=== PATIENT | female | born 1990 | race Caucasian/White ===

== ENCOUNTER 2016-09-29 14:07 | Emergency (ER) | payer MEDICARE, MEDICAID ==
[2016-09-29 17:53] LABS: Hematocrit 45 % (35-47); Hemoglobin 15.2 g/dl (12.0-16.0); Mean Corpuscular HGB Conc 34 g/dl (31-36); Mean Corpuscular Hemoglobin 30 pg (27-31); Mean Corpuscular Volume 87 fL (80-97); Mean Platelet Volume 8 um3 (7.4-10.4); Red Blood Count 5.14 10^6/ul (4.0-5.4); Red Cell Distribution Width 13 % (10.5-15); White Blood Count 10.4 10^3/ul (3.5-10.8)
[2016-09-29 18:10] LABS: ALT 67 U/L (7-52); AST 43 U/L (13-39); Albumin 4.2 g/dL (3.2-5.2); Alkaline Phosphatase 66 U/L (34-104); Anion Gap 10 mmol/L (2-11); Blood Urea Nitrogen 11 mg/dL (6-24); C Reactive Protein 7.95 mg/L (< 5.00); CO2 Carbon Dioxide 26 mmol/L (22-32); Calcium 10.2 mg/dL (8.6-10.3); Chloride 97 mmol/L (101-111); EGFR African American 152.5 (>60); EGFR Non-African American 118.6 (>60); Globulin 3.9 g/dL (2-4); Glucose 279 mg/dL (70-100); Lipase 29 U/L (11.0-82.0); Potassium 3.9 mmol/L (3.5-5.0); Sodium 133 mmol/L (133-145); Total Protein 8.1 g/dL (6.4-8.9)
--- NOTE | 2016-09-29 18:56 | RAD ---
HISTORY: Diffuse abdominal pain COMPARISONS: None TECHNIQUE: Multiple transverse and longitudinal ultrasound images were obtained of the right upper quadrant of the abdomen using grayscale and color Doppler imaging. FINDINGS: LIVER: The liver is diffusely echogenic and coarse in echotexture, with decreased acoustic transmission. The liver is enlarged measuring 24 cm in long axis.. There is normal hepatopedal flow of the portal vein on Doppler imaging. BILIARY TREE: There is no intrahepatic or extrahepatic biliary dilatation. The common duct measures 0.2 cm. GALLBLADDER: The gallbladder is well-visualized. There is no cholelithiasis, gallbladder wall thickening, pericholecystic fluid, or sonographic Shah sign. PANCREAS: The head of the pancreas is unremarkable. The tail of the pancreas is not well visualized secondary to overlying bowel gas. RIGHT KIDNEY: The right kidney is normal in shape, size, contour, and echogenicity. There is no hydronephrosis or nephrolithiasis. The right kidney measures 12.3 x 6.7 x 5.5 cm. AORTA AND IVC: The aorta and IVC are unremarkable. FLUID: There are no pleural effusions. There is no free fluid within the hepatorenal recess. OTHER FINDINGS: There is a hypoechoic focus near the rosemary hepatis suggestive of a rosemary hepatis lymph node measuring 1.7 cm in short axis IMPRESSION: HEPATOMEGALY WITH FATTY INFILTRATION OF LIVER. QUESTIONABLE ENLARGED ROSEMARY HEPATIS LYMPH NODE.
--- NOTE | 2016-09-29 19:05 | RAD ---
HISTORY: Pelvic pain COMPARISONS: October 14, 2014 TECHNIQUE: Multiple transverse and longitudinal ultrasound images were obtained of the pelvis using grayscale, color Doppler, and spectral Doppler imaging using the transabdominal transducer. FINDINGS: UTERUS: The uterus measures 6.3 x 3.2 x 4.2 cm. The uterus is normal in shape, size, contour, and echotexture. ENDOMETRIUM: The endometrial stripe is smooth. The endometrium measures 0.6 cm in thickness. CUL-DE-SAC: There is no free fluid within the cul-de-sac. RIGHT OVARY: The right ovary measures 3.3 x 1.9 x 2.4 cm. Normal arterial and venous waveforms are identifiable within the ovary on spectral Doppler imaging. LEFT OVARY: The left ovary measures 3.9 by 2 x 2.9 cm. Normal arterial and venous waveforms are identifiable within the ovary on spectral Doppler imaging. BLADDER: The visualized bladder is unremarkable. IMPRESSION: NO ACUTE SONOGRAPHIC PATHOLOGY OF THE VISUALIZED PORTION OF THE PELVIS.
[2016-09-29 20:23] VITALS: BP 148/81
--- NOTE | 2016-09-29 21:33 | ED ---
Chaparrita Santana Janilya, scribed for Karl Miles MD on 09/29/16 at 1717 . Abdominal Pain/Female - HPI Summary HPI Summary: A 25 y/o female came in to [facility] presenting w/ a gradual onset of constant abd pain starting 2 days ago. Pain is described as menstrual cramping, however, pt is not bleeding. LNMP Amy, which is normal for pt. In addition, pt reports nausea. Pt denies vomiting, urinary Sx. Pt has normal bowel movements. Pt regularly takes Metformin. - History of Current Complaint Chief Complaint: EDAbdPain Stated Complaint: ABD PAIN Time Seen by Provider: 09/29/16 17:13 Hx Obtained From: Patient Hx Last Menstrual Period: 2013 Onset/Duration: Gradual Onset, Lasting Days, Still Present Timing: Constant Severity Initially: Moderate Severity Currently: Moderate Pain Intensity: 5 Pain Scale Used: 0-10 Numeric Location: Diffuse Radiates: No Character: Dull Aggravating Factor(s): Nothing Alleviating Factor(s): Nothing Allergies/Adverse Reactions: Allergies Allergy/AdvReac Type Severity Reaction Status Date / Time No Known Allergies Allergy Verified 03/14/16 20:28 PMH/Surg Hx/FS Hx/Imm Hx Previously Healthy: Yes Endocrine/Hematology History: Reports: Hx Diabetes, Hx Thyroid Disease - thinks yes Cardiovascular History: Reports: Hx Hypertension Denies: Hx Hypercholesterolemia, Hx Pacemaker/ICD, Hx Peripheral Vascular Disease Respiratory History: Denies: Hx Asthma, Hx Chronic Obstructive Pulmonary Disease (COPD) GI History: Denies: Hx Ulcer Musculoskeletal History: Denies: Hx Arthritis, Hx Rheumatoid Arthritis, Hx Osteoporosis Sensory History: Denies: Hx Cataracts, Hx Contacts or Glasses, Hx Glaucoma, Hx Hearing Aid Opthamlomology History: Denies: Hx Cataracts, Hx Contacts or Glasses, Hx Glaucoma Neurological History: Denies: Hx Headaches, Hx Seizures, Hx Transient Ischemic Attacks (TIA) Psychiatric History: Denies: Hx Anxiety, Hx Depression, Hx Panic Disorder Infectious Disease History: No Infectious Disease History: Reports: History Other Infectious Disease - chicken pox Denies: Hx Clostridium Difficile, Hx Hepatitis, Hx Human Immunodeficiency Virus (HIV), Hx of Known/Suspected MRSA, Hx Shingles, Hx Tuberculosis, Hx Known/ Suspected VRE, Hx Known/Suspected VRSA, Traveled Outside the [place] in Last 30 Days - Family History Known Family History: Positive: Cardiac Disease, Hypertension, Diabetes - Social History Alcohol Use: None Hx Substance Use: No Substance Use Type: Reports: None Hx Tobacco Use: No Smoking Status (MU): Never Smoked Tobacco Review of Systems Positive: Abdominal Pain, Nausea. Negative: Vomiting Genitourinary: Negative Positive: no symptoms reported All Other Systems Reviewed And Are Negative: Yes Physical Exam Triage Information Reviewed: Yes Vital Signs On Initial Exam: Initial Vitals Temp Pulse Resp BP Pulse Ox 97 F 113 18 144/78 99 09/29/16 14:47 09/29/16 14:47 09/29/16 14:47 09/29/16 14:47 09/29/16 14:47 Vital Signs Reviewed: Yes Appearance: Positive: Well-Appearing, No Pain Distress, Obese Skin: Positive: Warm, Skin Color Reflects Adequate Perfusion, Dry Head/Face: Positive: Normal Head/Face Inspection Eyes: Positive: Normal ENT: Positive: Normal ENT inspection Neck: Positive: Supple, Nontender Respiratory/Lung Sounds: Positive: Clear to Auscultation, Breath Sounds Present Cardiovascular: Positive: RRR Abdomen Description: Positive: Nontender, Soft Bowel Sounds: Positive: Present Musculoskeletal: Positive: Normal Neurological: Positive: Normal Psychiatric: Positive: Affect/Mood Appropriate - Carlos Coma Scale Coma Scale Total: 15 Diagnostics - Vital Signs Vital Signs Temp Pulse Resp BP Pulse Ox 09/29/16 16:59 97.1 F 110 16 156/92 96 09/29/16 16:15 97.2 F 101 17 143/75 100 09/29/16 14:47 97 F 113 18 144/78 99 - Laboratory Lab Results: Lab Results 09/29/16 09/29/16 09/29/16 Range/Units 17:45 17:45 17:45 WBC 10.4 (3.5-10.8) 10^3/ul RBC 5.14 (4.0-5.4) 10^6/ul Hgb 15.2 (12.0-16.0) g/dl Hct 45 (35-47) % MCV 87 (80-97) fL MCH 30 (27-31) pg MCHC 34 (31-36) g/dl RDW 13 (10.5-15) % Plt Count 368 (150-450) 10^3/ul MPV 8 (7.4-10.4) um3 Neut % (Auto) 55.5 (38-83) % Lymph % (Auto) 39.2 (25-47) % [place] % (Auto) 3.8 (1-9) % Eos % (Auto) 0.4 (0-6) % Baso % (Auto) 1.1 (0-2) % Absolute Neuts (auto) 5.8 (1.5-7.7) 10^3/ul Absolute Lymphs (auto) 4.1 (1.0-4.8) 10^3/ul Absolute Monos (auto) 0.4 (0-0.8) 10^3/ul Absolute Eos (auto) 0 (0-0.6) 10^3/ul Absolute Basos (auto) 0.1 (0-0.2) 10^3/ul Absolute Nucleated RBC 0.01 10^3/ul Nucleated RBC % 0.1 Sodium 133 (133-145) mmol/L Potassium 3.9 (3.5-5.0) mmol/L Chloride 97 L (101-111) mmol/L Carbon Dioxide 26 (22-32) mmol/L Anion Gap 10 (2-11) mmol/L BUN 11 (6-24) mg/dL Creatinine 0.61 (0.51-0.95) mg/dL Est GFR ( Amer) 152.5 (>60) Est GFR (Non-Af Amer) 118.6 (>60) BUN/Creatinine Ratio 18.0 (8-20) Glucose 279 H (70-100) mg/dL Lactic Acid 2.1 H* (0.5-2.0) mmol/L Calcium 10.2 (8.6-10.3) mg/dL Total Bilirubin 0.30 (0.2-1.0) mg/dL AST 43 H (13-39) U/L ALT 67 H (7-52) U/L Alkaline Phosphatase 66 (34-104) U/L C-Reactive Protein 7.95 H (< 5.00) mg/L Total Protein 8.1 (6.4-8.9) g/dL Albumin 4.2 (3.2-5.2) g/dL Globulin 3.9 (2-4) g/dL Albumin/Globulin Ratio 1.1 (1-3) Lipase 29 (11.0-82.0) U/L Beta HCG, Quant < 0.60 mIU/mL Result Diagrams: 09/29/16 17:45 09/29/16 17:45 Lab Statement: Any lab studies that have been ordered have been reviewed, and results considered in the medical decision making process. - Ultrasound No standard instances Ultrasound Interpretation: Positive (See Comments) - Gallbladder US IMPRESSION: HEPATOMEGALY WITH FATTY INFILTRATION OF LIVER. QUESTIONABLE ENLARGED ROSEMARY HEPATIS LYMPH NODE. Pelvis US IMPRESSION: NO ACUTE SONOGRAPHIC PATHOLOGY OF THE VISUALIZED PORTION OF THE PELVIS. Ultrasound Interpretation Completed By: Radiologist Abdominal Pain Fem Course/Dx - Course Course Of Treatment: Ms. Melendrez C/O abdominal cramping but appeared to be in no distress and was nontender to palpitation. He W/U was unremarkable and she was D/C'd to F/U with her PMD. She inadvertently urinated here without giving a sample. She has no UTI type symptoms. - Diagnoses Provider Diagnoses: Abdominal pain Discharge - Discharge Plan Condition: Stable Disposition: HOME Patient Education Materials: Abdominal Pain (ED) Referrals: Alex Miller NP [Primary Care Provider] - 2 Days The documentation as recorded by the Chaparrita marrero Janilya accurately reflects the service I personally performed and the decisions made by me, Karl Miles MD.
== END 2016-09-29 20:43 | disposition home or self-care (01) ==
LOC: ED 14:07
DX: R10.9 Unspecified abdominal pain (principal); R11.0 Nausea; K76.0 Fatty (change of) liver, not elsewhere classified
CPT/HCPCS: 36415; 76705; 76856; 80053; 83605; 83690; 84702; 85025; 86140; 99282

== ENCOUNTER 2017-02-21 11:28 | Emergency (ER) | payer MEDICARE, MEDICAID ==
[2017-02-21 11:38] VITALS: BP 152/87
--- NOTE | 2017-02-21 11:53 | UC ---
Hand/Wrist HPI - HPI Summary HPI Summary: ONSET OF RIGHT WRIST PAIN 5 DAYS AGO. 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 NO SWELLING. HAS BEEN WEARING A SPLINT WITH NO SIGNIFICANT IMPROVEMENT. - History Of Current Complaint Chief Complaint: UCUpperExtremity Stated Complaint: WRIST PAIN Time Seen by Provider: 02/21/17 11:47 Hx Obtained From: Patient Hx Last Menstrual Period: 01/28/17 Onset/Duration: Gradual Onset, Lasting Days, Still Present Severity Initially: Moderate Severity Currently: Moderate Pain Intensity: 5 Pain Scale Used: 0-10 Numeric Character Of Pain: Dull, Aching Aggravating Factor(s): Movement, Extension Alleviating: Rest Associated Signs And Symptoms: Negative: Swelling, Redness, Bruising, Numbness/ Tingling Related History: Dominant Hand Right - Allergies/Home Medications Allergies/Adverse Reactions: Allergies Allergy/AdvReac Type Severity Reaction Status Date / Time No Known Allergies Allergy Verified 03/14/16 20:28 Home Medications: Home Medications Dulaglutide (NF) [Trulicity (NF)] 1.5 mg SC 02/21/17 [History] Omeprazole CAP* [Prilosec CAP* 20 MG] 20 mg PO DAILY 02/21/17 [History Confirmed 02/21/17] PMH/Surg Hx/FS Hx/Imm Hx Endocrine History: Diabetes Cardiovascular History: Hypertension - Surgical History Surgical History: None - Family History Known Family History: Positive: Cardiac Disease, Hypertension, Diabetes - Social History Alcohol Use: None Substance Use Type: None Smoking Status (MU): Never Smoked Tobacco - Immunization History Most Recent Influenza Vaccination: 02/26/16 Review of Systems Constitutional: Negative Skin: Negative Respiratory: Negative Cardiovascular: Negative Gastrointestinal: Negative Musculoskeletal: Arthralgia, Decreased ROM All Other Systems Reviewed And Are Negative: Yes Physical Exam Triage Information Reviewed: Yes Appearance: Well-Appearing, No Pain Distress, Well-Nourished Vital Signs: Initial Vital Signs Pulse 100 02/21/17 11:34 Resp 20 02/21/17 11:34 BP 152/87 02/21/17 11:34 Pulse Ox 99 02/21/17 11:34 Vital Signs Reviewed: Yes Eyes: Positive: Conjunctiva Clear ENT: Positive: Hearing grossly normal Neck: Positive: Supple Respiratory: Positive: No respiratory distress, No accessory muscle use Cardiovascular: Positive: Pulses Normal Abdomen Description: Positive: Soft Musculoskeletal: Positive: No Edema, ROM Limited @ - RIGHT WRIST EXTENSION, Other: - NOT TENDER OVER SNUFFBOX OR BONY PROMINENCES Neurological: Positive: Alert Psychological: Positive: Age Appropriate Behavior Skin: Negative: rashes Diagnostics - Radiology RIGHT WRIST XRAY Xray Interpretation: No Acute Changes Radiology Interpretation Completed By: Radiologist Hand/Wrist Course/Dx - Differential Dx/Diagnosis Provider Diagnoses: RIGHT WRIST SPRAIN Discharge - Discharge Plan Condition: Stable Disposition: HOME Patient Education Materials: Wrist Sprain (ED) Referrals: Dom Lew MD [Primary Care Provider] - If Needed Additional Instructions: XRAY TODAY UNREMARKABLE. WEAR THE SPLINT WHILE SLEEPING AND DURING THE DAY ABLE. IF YOU ARE NOT IMPROVING OVER THE NEXT 1-2 WEEKS FOLLOW-UP WITH YOUR PCP FOR FURTHER EVALUATION.
--- NOTE | 2017-02-21 12:11 | RAD ---
INDICATION: Right wrist injury. TECHNIQUE: 3 views of the right wrist were obtained. FINDINGS: The bones are in normal alignment. No fracture is seen. Joint spaces appear maintained. IMPRESSION: NO EVIDENCE FOR FRACTURE, IF THE PATIENT'S SYMPTOMS PERSIST, RECOMMEND FOLLOW-UP IMAGING.
== END 2017-02-21 12:45 | disposition home or self-care (01) ==
LOC: UCEAST 11:28
DX: S63.501A Unspecified sprain of right wrist, initial encounter (principal); X58.XXXA Exposure to other specified factors, initial encounter
CPT/HCPCS: 99212; G0463

== ENCOUNTER 2017-07-29 11:48 | Emergency (ER) | payer MEDICARE, MEDICAID ==
--- OUTSIDE RECORDS SUMMARY | 2017-07-29 12:15 | XMS REPORT ---
:1990 External Reference #:[id number] Demographics Address [address] [place] [address] Mobile Phone [phone] Email Address Preferred Language Pashto Marital Status Not Or Baptist Affiliation Unknown Race White Ethnic Group Not Or Author Organization [employer] Address [address] [address] Phone [phone] Care Team Providers Name Role Phone Dimitry Domínguez MD Care Team Information Tire Repair Mechanic Unavailable Dom Lew MD Primary Care Physician Unavailable Payers Type Date Identification Numbers Payment Provider Subscriber Medicare Primary Policy Number: [id number] Medicare Sabas Brooks PayID: [id number] [address] [place] [address] [facility] Policy Number: [id number] Medicaid Sabas Brooks Group Name: [id number] [address] PayID: [id number] [place] [address] Problems Date Description Provider Status Onset: 10/30/2015 Type 2 diabetes mellitus Alex Miller NP Active Onset: 10/30/2015 Essential hypertension Alex Miller NP Active Onset: 10/30/2015 Mixed hyperlipidemia Alex Miller NP Active Onset: 10/30/2015 Gastroesophageal reflux disease Alex Miller NP Active Onset: 10/30/2015 Seasonal allergic rhinitis Alex Miller NP Active Onset: 07/15/2016 Disturbance in sleep behavior Lindy Pedersen MD Active Onset: 07/15/2016 Morbid obesity Lindy Pedersen MD Active Onset: 08/15/2016 Obstructive sleep apnea syndrome Lindy Pedersen MD Active Note: SEVERE Onset: 10/02/2016 Non-alcoholic fatty liver Alex Miller NP Active Note: 09/29/16 u/s ? enlarged sahara hepatis Onset: 03/11/2017 Wrist joint pain Nikko Thrasher M.D. Inactive Inactive: 05/02/2017 Onset: 01/30/2016 Callus of heel Alex Miller NP Resolved Resolved: 05/31/2016 Family History Date Family Member(s) Problem(s) Comments General Hypertension General Diabetes General MGM Alzheimer's Father Hypertension Father Hypercholesterolemia Mother No Current Problems Siblings 3 Healthy Social History Type Date Description Comments Marital Status Single Lives With Alone Occupation Currently Working [employer] Cigarette Use Never Smoked Cigarettes ETOH Use Denies alcohol use Smoking Patient has never smoked Recreational Drug Use Denies Drug Use Daily Caffeine Hot and iced tea daily Normally caffiene freeDocument: 03/17/17 - Sleep Follow Up Daily Caffeine Soda OccasionalDocument: 03/17/17 - Sleep Follow Up Daily Caffeine Regular coffee OccasionalDocument: 03/17/17 - Sleep Follow Up Exercise Type/Frequency Exercises regularly Exercise Type/Frequency Walks daily Exercise Type/Frequency Work [employer] room 3x per week Currently Active Patient is currently not sexually active General Hx Text Allergies, Adverse Reactions, Alerts Date Description Reaction Status Severity Comments 03/16/2014 NKDA active Medications Medication Date Status Form Strength Qnty SIG Indications Ordering Provider Synjardy XR 05/02/ Active Tablets ER 12.5-1000 60tab Take 1 Tablet Dom 2016 24HR mg s By Mouth Twice Nadir Lew, Daily M.D.,FACP Onetouch 03/12/ Active Misc 30G 200un test blood six E11. Nikko Valentin its times daily Anna Marie Mendoza M.D. 30G Vascepa 01/27/ Active Capsules 1gm 60cap 1 by mouth Dom Valentin s twice a day Nadir Lew M.D.,FACP Lantus 01/27/ Active Solution 100Unit/M 15uni Inject 60 Units Dom Santos 2016 Pen-Inject L ts Under The Skin Nadir Lew, Once In Evening M.D.,FACP Trulicity 12/16/ Active Solution 1.5mg/0.5 6ml inject E11. Dom Valentin Pen-Inject ML subcutaneously Nadir Lew, weekly on M.D.,FACP Onetouch 10/07/ Active Strips 100un test six times E11. Nikko Gray Blue 2016 its daily Kyara Thrasher Pen [place] 10/29/ Active Misc 31G X 6 100un humalog subq E11.65 Alex 2015 mm its three times a Mongolian, day W[employer] Enalapril 10/29/ Active Tablets 5mg 180ta take 1 tablet I10 Dom Maleate 2015 bs by mouth twice Nadir Lew, a day M.D.,FACP E11.65 Loratadine Active Tablets 10mg 30tabs take one J30.2 Ion- Dorian tablet by Nadir Lew, mouth one M.D.,FACP time daily Ibuprofen Active Tablets 200mg as needed Unknown Omeprazole Active Capsules DR 20mg 30caps Take One K21.9 Nikko Capsule By Anna Marie, Mouth M.D. Every Day Lovastatin Active Tablets 20mg 30tabs Take 1 E78.2 Dom Tablet By Nadir Lew, Mouth M.D.,FACP Nightly At Bedtime Fenofibrate Active Tablets 54mg 30tabs Take One Dom Tablet By Nadir Lew, Mouth One M.D.,FACP Time Daily Lzu-Wi-Lraabn Active Tablets 0.18/0 Take 1 Unknown .215/0 Tablet By .25 Mouth mg-25 Daily mcg Augmentin 05/02/2017 - Hx Tablets 875-12 20tabs by mouth Dom 05/12/2017 5mg twice a Nadir Lew, conor M.D.,FACP Naproxen DR 03/11/2017 - Hx Tablets DR 375mg 60tabs 1 by mouth M25.53 Nikko 03/17/2017 twice a 1 Pachikara, day M.D. Amoxicillin/Cl 03/11/2017 - Hx Tablets 875-12 20tabs 1 by mouth J06.9 Nikko avulanate 05/02/2017 5mg twice a Pachikara, Potassium day M.D. Fish Oil 01/01/2017 - Hx Capsules 1000mg 60caps 1 by mouth E78.2 Ion- Dorian 01/12/2017 twice a Nadir Lew, conor M.D.,FACP Fish Oil 12/24/2016 - Hx Capsules 1000mg 60caps 1 by mouth E78.2 IonAris Alarcon 12/24/2016 twice a Nadir Lew, day M.DAlea,FACP Vascepa 12/24/2016 - Hx Capsules 1gm 60caps 1 by mouth E78.2 Dom 01/01/2017 twice a Nadir Lew, day M.DAlea,FACP Lovaza 12/16/2016 - Hx Capsules 1gm 60caps take one E78.2 Dom 12/24/2016 capsule by Nadir Lew, mouth M.D.,FACP twice a day Metformin HCL 12/16/2016 - Hx Tablets ER 500mg 360tabs 1 tab by E11.65 Dom ER 05/02/2017 24HR mouth bid Nadir Lew M.D.,FACP Lantus 08/13/2016 - Hx Solution 100Uni 10ml inject 60 E11.65 Dom 01/27/2017 t/ML units Nadir Lew, under the NehemiasDAlea,ERINN skin daily at at bedtime Onetouch 07/16/2016 - Hx Misc 100units test blood [place] Ultrasoft 03/12/2017 3 times a Anna Marie Lancets day and as M.D. needed up to 6 times a day, dx e11.9 Neomycin-Polym 07/12/2016 - Hx Suspension 3.5-10 10ml 4 drops [place] yxin-HC 08/13/2016 000-1 both ear Pachikara, bid M.D. Levofloxacin 07/11/2016 - Hx Tablets 500mg 10tabs once daily H66.92 Nikko 08/13/2016 Kyara Thrasher Ciprodex 07/11/2016 - Hx Suspension 0.3-0. 7.500ml 4 drops H66.92 [place] 08/13/2016 1% twice a Pachikara, day 7 days M.D. stop for inreased iritation Cipro HC 07/11/2016 - Hx Suspension 0.2-1% 10ml 4 drops [place] 08/13/2016 twic daily Pachikara, x 7 says M.D. Amoxicillin 07/08/2016 - Hx Tablets 875mg 20tabs take one H66.92 Alex 07/11/2016 tablet by KOKO Miller mouth twice a day x's 10 days Zofran 05/31/2016 - Hx Tablets 4mg 14tabs take 1 E11. Alex 06/06/2016 tablet by KOKO Miller mouth every 8 hours three times daily as needed for nausea Trulicity 05/23/2016 - Hx Solution 0.75mg 2ml 1 E11. Alex 12/16/2016 Pen-Inject /0.5ML injection KOKO Miller weekly Metformin HCL 05/13/2016 - Hx Tablets ER 500mg 180tabs take 2 E11. Dom THOMAS 12/16/2016 24HR tablets by los Jenkins M.DAlea,FACP daily Metformin HCL 02/05/2016 - Hx Tablets 1000mg 60tabs 1 by mouth E11. Alex 05/13/2016 twice a KOKO Miller day Humalog Mix 10/30/2015 - Hx Supn (75-25 15ml 10 units E11 Alex 75/25 Kwikpen 05/23/2016 )100Un subq twice KOKO Miller it/ML a day at breakfast and dinner; give 15 minutes prior to your meal Lantus 10/30/2015 - Hx Solution 100Uni 15ml inject 20 E11 Alex Solostar 08/13/2016 Pen-Inject t/ML units KOKO Miller under the skin daily at the same time at bedtime Metformin HCL 03/16/2014 - Hx Tablets ER 500mg 90tabs 1 by mouth E11. Alex ER 02/05/2016 24HR twice a KOKO Miller day Enalapril - Hx Tablets 5mg 90tabs 1 by mouth I10 Unknown Maleate 10/30/2015 every day E11. Atorvastatin - Hx Tablets 20mg 90tabs take 1 Unknown Calcium 10/30/2015 tablet at bedtime Fenofibrate - Hx Tablets 54mg 30tabs take one E78.2 Veronica Schmitz 12/16/2016 tablet by los Lew one MTrisha,FACP time daily Medications Administered in Office Medication Date Status Form Strength Qnty SIG Indications Ordering Provider HPV,Unspecifie Administered Injection Unknown d 007 Polio,Unspecif Administered Injection Unknown ied 995 Immunizations CPT Code Status Date Vaccine Lot # [id number] Given 12/16/2016 Pneumonia Vaccine [id number] 84501 Given 04/13/2007 Tdap - Tetanus/Diptheria/Acellular Pertussis 31568 Given 04/13/2007 Hepatitis A Vaccine Adult Dosage 15558 Given 06/20/2002 Hepatitis A Vaccine Pediatric/Adolescent Dosage 3 Dose Schedule 76908 Given 03/25/2002 Hepatitis A Vaccine Pediatric/Adolescent Dosage 2 Dose Schedule 47715 Given 11/19/1994 Hep B Pediatric/Adolescent 62051 Given 11/19/1994 Measles Mumps And Rubella MMR 36499 Given 04/12/1991 Hib PRP-Omp Conjugate 3 Dose Schedule Vital Signs Date Vital Result Comment 07/15/2017 Height 60 inches 5'0" Weight 226.50 lb with shoes Heart Rate 84 /min BP Systolic Sitting 124 mmHg Rue lareg cuff BP Diastolic Sitting 74 mmHg Rue lareg cuff Respiratory Rate 16 /min O2 % BldC Oximetry 99 % On Ra BMI (Body Mass Index) 44.2 kg/m2 05/06/2017 Height 60 inches 5'0" Weight 217.00 lb with shoes Heart Rate 108 /min BP Systolic Sitting 120 mmHg Lue large cuff BP Diastolic Sitting 80 mmHg Lue large cuff Respiratory Rate 24 /min O2 % BldC Oximetry 97 % On Ra BMI (Body Mass Index) 42.4 kg/m2 05/02/2017 Weight 222.00 lb Heart Rate 97 /min BP Systolic Sitting 124 mmHg BP Diastolic Sitting 82 mmHg Body Temperature 98.6 F O2 % BldC Oximetry 95 % 03/17/2017 Height 60 inches 5'0" Weight 226.12 lb With shoes and wrist brace Heart Rate 106 /min BP Systolic Sitting 152 mmHg Lue reg cuff BP Diastolic Sitting 86 mmHg Lue reg cuff Respiratory Rate 24 /min O2 % BldC Oximetry 98 % On Ra BMI (Body Mass Index) 44.2 kg/m2 03/11/2017 Height 60 inches 5'0" Weight 222.12 lb Heart Rate 96 /min BP Systolic 132 mmHg BP Diastolic 74 mmHg Body Temperature 99.6 F O2 % BldC Oximetry 98 % BMI (Body Mass Index) 43.4 kg/m2 01/27/2017 Height 60 inches 5'0" Weight 220.00 lb Heart Rate 102 /min BP Systolic 122 mmHg BP Diastolic 66 mmHg Body Temperature 99.4 F O2 % BldC Oximetry 98 % BMI (Body Mass Index) 43.0 kg/m2 01/13/2017 Height 60 inches 5'0" Weight 226.00 lb Heart Rate 80 /min BP Systolic Sitting 136 mmHg BP Diastolic Sitting 92 mmHg Respiratory Rate 14 /min O2 % BldC Oximetry 98 % BMI (Body Mass Index) 44.1 kg/m2 12/16/2016 Weight 225.38 lb Heart Rate 119 /min BP Systolic 142 mmHg BP Diastolic 78 mmHg BP Systolic Recheck 108 mmHg BP Diastolic Recheck 72 mmHg Body Temperature 97.9 F O2 % BldC Oximetry 96 % 09/26/2016 Height 60 inches 5'0" Heart Rate 111 /min BP Systolic Sitting 120 mmHg BP Diastolic Sitting 70 mmHg Respiratory Rate 22 /min Pain Level 0 O2 % BldC Oximetry 98 % 09/06/2016 Weight 227.38 lb Heart Rate 100 /min BP Systolic Sitting 140 mmHg BP Diastolic Sitting 70 mmHg Body Temperature 98.9 F O2 % BldC Oximetry 96 % 08/15/2016 Height 60 inches 5'0" Weight 227.00 lb Heart Rate 113 /min BP Systolic Sitting 154 mmHg BP Diastolic Sitting 90 mmHg Respiratory Rate 18 /min O2 % BldC Oximetry 97 % BMI (Body Mass Index) 44.3 kg/m2 08/13/2016 Weight 227.38 lb Heart Rate 108 /min BP Systolic Sitting 146 mmHg BP Diastolic Sitting 80 mmHg Body Temperature 99.4 F O2 % BldC Oximetry 98 % 07/15/2016 Height 60 inches 5'0" Weight 227.00 lb Heart Rate 95 /min BP Systolic Sitting 138 mmHg BP Diastolic Sitting 82 mmHg Respiratory Rate 16 /min O2 % BldC Oximetry 97 % BMI (Body Mass Index) 44.3 kg/m2 Neck Circumference in inches 18.25 07/11/2016 Weight 227.38 lb Heart Rate 97 /min BP Systolic Sitting 140 mmHg BP Diastolic Sitting 72 mmHg Body Temperature 99.4 F O2 % BldC Oximetry 97 % 07/08/2016 Height 60 inches 5'0" Weight 229.00 lb Heart Rate 102 /min BP Systolic Sitting 126 mmHg BP Diastolic Sitting 76 mmHg Body Temperature 99.3 F O2 % BldC Oximetry 96 % BMI (Body Mass Index) 44.7 kg/m2 05/31/2016 Height 60 inches 5'0" Weight 226.38 lb Heart Rate 118 /min BP Systolic Sitting 118 mmHg BP Diastolic Sitting 80 mmHg Body Temperature 99.1 F O2 % BldC Oximetry 96 % BMI (Body Mass Index) 44.2 kg/m2 05/13/2016 Weight 230.25 lb Heart Rate 98 /min BP Systolic Sitting 136 mmHg BP Diastolic Sitting 88 mmHg Body Temperature 98.7 F O2 % BldC Oximetry 99 % 04/05/2016 Height 60 inches 5'0" Weight 233.00 lb Heart Rate 110 /min BP Systolic Sitting 134 mmHg BP Diastolic Sitting 70 mmHg Body Temperature 99.4 F O2 % BldC Oximetry 96 % BMI (Body Mass Index) 45.5 kg/m2 03/12/2016 Height 60 inches 5'0" Weight 230.25 lb Heart Rate 108 /min BP Systolic Sitting 126 mmHg BP Diastolic Sitting 76 mmHg Body Temperature 99.4 F O2 % BldC Oximetry 97 % BMI (Body Mass Index) 45.0 kg/m2 02/05/2016 Height 60 inches 5'0" Weight 230.00 lb Heart Rate 96 /min BP Systolic Sitting 136 mmHg BP Diastolic Sitting 76 mmHg Respiratory Rate 16 /min Body Temperature 99.0 F BMI (Body Mass Index) 44.9 kg/m2 12/06/2015 Height 60 inches 5'0" Weight 233.38 lb Heart Rate 114 /min BP Systolic Sitting 118 mmHg BP Diastolic Sitting 70 mmHg O2 % BldC Oximetry 96 % BMI (Body Mass Index) 45.6 kg/m2 11/22/2015 Height 60 inches 5'0" Weight 236.00 lb Heart Rate 94 /min BP Systolic Sitting 112 mmHg BP Diastolic Sitting 76 mmHg Body Temperature 99.3 F O2 % BldC Oximetry 98 % BMI (Body Mass Index) 46.1 kg/m2 10/30/2015 Height 60 inches 5'0" Weight 238.00 lb Heart Rate 102 /min BP Systolic Sitting 148 mmHg BP Diastolic Sitting 92 mmHg Body Temperature 98.7 F O2 % BldC Oximetry 96 % BMI (Body Mass Index) 46.5 kg/m2 03/16/2014 Height 60 inches 5'0" Weight 224.00 lb Heart Rate 78 /min BP Systolic Sitting 124 mmHg BP Diastolic Sitting 80 mmHg Pain Level 2 back BMI (Body Mass Index) 43.7 kg/m2 Results Test Date Test Result H/L Range Note Laboratory test finding 05/02/2017 Hemoglobin A1c 10.2 High 5-7 Lipid Profile (Trig/Chol/HDL) 01/24/2017 Triglycerides 534 mg/dL 1 Cholesterol 223 mg/dL 2 HDL Cholesterol 29.0 mg/dL 3 LDL Cholesterol (SEE NOTE) mg/dL 4 Liver Function Panel 01/24/2017 Total Protein 7.2 g/dL 6.4-8.9 Albumin 3.9 g/dL 3.2-5.2 Globulin 3.3 g/dL 2-4 Albumin/Globulin Ratio 1.2 1-3 Total Bilirubin 0.40 mg/dL 0.2-1.0 Direct Bilirubin 0.10 mg/dL 0.03-0.18 Indirect Bilirubin 0.3 mg/dL 0.3-1.0 Alkaline Phosphatase 61 U/L 34-104 Alt 83 U/L High 7-52 Ast 75 U/L High 13-39 Lipid Profile (Trig/Chol/HDL) 12/12/2016 Triglycerides 487 mg/dL 5 Cholesterol 192 mg/dL 6 HDL Cholesterol 25.8 mg/dL 7 LDL Cholesterol (SEE NOTE) mg/dL 8 Basic Metabolic Panel 12/12/2016 Sodium 135 mmol/L 133-145 Potassium 4.3 mmol/L 3.5-5.0 Chloride 98 mmol/L Low 101-111 Co2 Carbon Dioxide 26 mmol/L 22-32 Anion Gap 11 mmol/L 2-11 Glucose 255 mg/dL High 70-100 Blood Urea Nitrogen 11 mg/dL 6-24 Creatinine 0.50 mg/dL Low 0.51-0.95 BUN/Creatinine Ratio 22.0 High 8-20 Calcium 9.6 mg/dL 8.6-10.3 Egfr Non- 149.1 >60 Egfr 191.8 >60 9 Urine Microalbumin Random 12/12/2016 Urine Creatinine 97.76 mg/dL Ur Microalbumin (mg/L) 142.8 mg/L Urine Microalbumin/Creatinine 146.0 ug/mg High <31 Laboratory test 12/12/2016 Hemoglobin A1c 11.0 % High Less than 6.0 10 finding (Glyco HGB) CBC Auto Diff 09/29/2016 White Blood Count 10.4 10^3/uL 3.5-10.8 Red Blood Count 5.14 10^6/uL 4.0-5.4 Hemoglobin 15.2 g/dL 12.0-16.0 Hematocrit 45 % 35-47 Mean Corpuscular Volume 87 fL 80-97 Mean Corpuscular Hemoglobin 30 pg 27-31 Mean Corpuscular HGB Conc 34 g/dL 31-36 Red Cell Distribution Width 13 % 10.5-15 Platelet Count 368 10^3/uL 150-450 Mean Platelet Volume 8 um3 7.4-10.4 Abs Neutrophils 5.8 10^3/uL 1.5-7.7 Abs Lymphocytes 4.1 10^3/uL 1.0-4.8 Abs Monocytes 0.4 10^3/uL 0-0.8 Abs Eosinophils 0 10^3/uL 0-0.6 Abs Basophils 0.1 10^3/uL 0-0.2 Abs Nucleated RBC 0.01 10^3/uL Granulocyte % 55.5 % 38-83 Lymphocyte % 39.2 % 25-47 Monocyte % 3.8 % 1-9 Eosinophil % 0.4 % 0-6 Basophil % 1.1 % 0-2 Nucleated Red Blood Cells % 0.1 Comp Metabolic Panel 09/29/2016 Sodium 133 mmol/L 133-145 Potassium 3.9 mmol/L 3.5-5.0 Chloride 97 mmol/L Low 101-111 Co2 Carbon Dioxide 26 mmol/L 22-32 Anion Gap 10 mmol/L 2-11 Glucose 279 mg/dL High 70-100 Blood Urea Nitrogen 11 mg/dL 6-24 Creatinine 0.61 mg/dL 0.51-0.95 BUN/Creatinine Ratio 18.0 8-20 Calcium 10.2 mg/dL 8.6-10.3 Total Protein 8.1 g/dL 6.4-8.9 Albumin 4.2 g/dL 3.2-5.2 Globulin 3.9 g/dL 2-4 Albumin/Globulin Ratio 1.1 1-3 Total Bilirubin 0.30 mg/dL 0.2-1.0 Alkaline Phosphatase 66 U/L 34-104 Alt 67 U/L High 7-52 Ast 43 U/L High 13-39 Egfr Non- 118.6 >60 Egfr 152.5 >60 11 Laboratory test finding 09/29/2016 Lipase 29 U/L 11.0-82.0 C Reactive Protein 7.95 mg/L High < 5.00 12 HCG < 0.60 mIU/mL 13 Lactic Acid 2.1 mmol/L High 0.5-2.0 14 Laboratory test finding 08/13/2016 Hemoglobin A1c 10.7 High 5-7 Laboratory test finding 05/13/2016 Hemoglobin A1c 11.5 High 5-7 Laboratory test finding 02/05/2016 Hemoglobin A1c 11.5 High 5-7 Laboratory test finding 11/23/2015 Cortisol 5.23 ?g/dL 15 Basic Metabolic Panel 11/23/2015 Sodium 135 mmol/L 133-145 Potassium 4.2 mmol/L 3.5-5.0 Chloride 99 mmol/L Low 101-111 Co2 Carbon Dioxide 28 mmol/L 22-32 Anion Gap 8 mmol/L 2-11 Glucose 196 mg/dL High 70-100 Blood Urea Nitrogen 11 mg/dL 6-24 Creatinine 0.49 mg/dL Low 0.51-0.95 BUN/Creatinine Ratio 22.4 High 8-20 Calcium 9.3 mg/dL 8.6-10.3 Egfr Non- 153.9 >60 Egfr 197.9 >60 16 Lipid Profile (Trig/Chol/HDL) 11/23/2015 Triglycerides 283 mg/dL 17 Cholesterol 164 mg/dL 18 HDL Cholesterol 26.6 mg/dL 19 LDL Cholesterol 81 mg/dL 20 Laboratory test finding 11/23/2015 TSH (Thyroid Stim 1.75 ?IU/mL 0.34- 5.60 Horm) Laboratory test finding 10/30/2015 Hemoglobin A1c 11.4 High 5-7 Urine Microalbumin 10/30/2015 Ur Microalbumin (mg/L) 131.0 mg/L Random Urine Creatinine 78.48 mg/dL Urine Microalbumin/Creatinine 166.9 ug/mg High <31 1 Desirable <150 Borderline high 150-199 High 200-499 Very High >500 2 Desirable <200 Borderline high 200-239 High >239 3 Low <40 Desirable: 40-60 High: >60 4 Unable to calculate LDL as triglyceride is > 400 5 Desirable <150 Borderline high 150-199 High 200-499 Very High >500 6 Desirable <200 Borderline high 200-239 High >239 7 Low <40 Desirable: 40-60 High: >60 8 Unable to calculate LDL as triglyceride is > 400 9 Because ethnic data is not always readily available, this report includes an eGFR for both -Americans and non- Americans. The National Kidney Disease Education Program (NKDEP) does not endorse the use of the MDRD equation for patients that are not between the ages of 18 and 70, are , have extremes of body size, muscle mass, or nutritional status, or are non- or non-. According to the National Kidney Foundation, irrespective of diagnosis, the stage of the disease is based on the level of kidney function: Stage Description GFR(mL/min/1.73 m(2)) 1 Kidney damage with normal or decreased GFR 90 2 Kidney damage with mild decrease in GFR 60-89 3 Moderate decrease in GFR 30-59 4 Severe decrease in GFR 15-29 5 Kidney failure <15 (or dialysis) 10 Therapeutic target for the treatment of diabetes Mellitus patients is <7% HBA1C, and in selective patients <6.0%.Please refer to [place] [employer] Diabetic care guidelines for further information. 11 Because ethnic data is not always readily available, this report includes an eGFR for both -Americans and non- Americans. The National Kidney Disease Education Program (NKDEP) does not endorse the use of the MDRD equation for patients that are not between the ages of 18 and 70, are , have extremes of body size, muscle mass, or nutritional status, or are non- or non-. According to the National Kidney Foundation, irrespective of diagnosis, the stage of the disease is based on the level of kidney function: Stage Description GFR(mL/min/1.73 m(2)) 1 Kidney damage with normal or decreased GFR 90 2 Kidney damage with mild decrease in GFR 60-89 3 Moderate decrease in GFR 30-59 4 Severe decrease in GFR 15-29 5 Kidney failure <15 (or dialysis) 12 Acute inflammation: >10.00 13 <5.0 Negative 5.0 - 25.0 Indeterminate (Repeat testing recommended after 72 hours) >25.0 Positive Perimenopausal women can display HCG levels of up to 20 mIU/mL 14 Critical Result LACT:2.1 Called to JAIME at: 18:12:11 by:[id number] Read back by:JAIME [facility] Severe Sepsis and Septic Shock Management Bundle Measure requires all lactic acids initially measuring >2.0 mmol/L be repeated. 15 AM 8.7-22.4 PM <10 16 Because ethnic data is not always readily available, this report includes an eGFR for both -Americans and non- Americans. The National Kidney Disease Education Program (NKDEP) does not endorse the use of the MDRD equation for patients that are not between the ages of 18 and 70, are , have extremes of body size, muscle mass, or nutritional status, or are non- or non-. According to the National Kidney Foundation, irrespective of diagnosis, the stage of the disease is based on the level of kidney function: Stage Description GFR(mL/min/1.73 m(2)) 1 Kidney damage with normal or decreased GFR 90 2 Kidney damage with mild decrease in GFR 60-89 3 Moderate decrease in GFR 30-59 4 Severe decrease in GFR 15-29 5 Kidney failure <15 (or dialysis) 17 Desirable <150 Borderline high 150-199 High 200-499 Very High >500 18 Desirable <200 Borderline high 200-239 High >239 19 Low <40 Desirable: 40-60 High: >60 20 Desirable: <100 mg/dL Near Optimal: 100-129 mg/dL Borderline High: 130-159 mg/dL High: 160-189 mg/dL Very High: >189 mg/dL Procedures Date CPT Code Description Status 03/18/2017 62603 Sleep Study Unattended,HRT Rate,Oxygen Sat,Resp Completed Effort/Airflow 09/04/2016 Diabetic Foot Exam Completed 08/08/2016 49149 Polysomnography Sleep Staging 4+ Parameters Completed 06/26/2016 Diabetic Retinal Eye Exam Completed 11/30/2015 Diabetic Foot Exam Completed Encounters Type Date Location Provider CPT E/M Dx Office Visit 05/06/2017 Pulmonology And Sleep Jennifer De Leon, 50751 G47.33 2:30p [facility] KWAN RN, ADJUNCT PROFESSOR OF [employer] E66.01 Z68.41 Office Visit 05/02/2017 11:40a [facility] Internal Dom Lew, [address]07 E11.65 Medicine - [place] Sean Sparrow,FACP M25.531 J01.10 Office Visit 03/17/2017 1:30p [facility] [place] [address] G47.33 [facility] E66.01 Z68.41 Office Visit 03/11/2017 4:00p [facility] Internal Nikko Anna Marie, [address]61 M25.531 Medicine - [address] Kyara J06.9 Office Visit 01/27/2017 2:40p [facility] Internal Dom Lew, [address]71 E11.65 Medicine - [address] Kyara,FACP E78.1 Office Visit 01/13/2017 1:30p [facility] [place] [address] G47.33 [facility] E66.01 Z68.41 Office Visit 12/16/2016 1:40p [facility] Internal Dom eLw, 65465 E11.65 Medicine - [address] Kyara,FACP E66.01 G47.33 E78.1 Z23 Office Visit 09/26/2016 3:15p [facility] [address] G47.33 [facility] E66.01 Office Visit 09/06/2016 10:00a [facility] Internal Medicine Aris Miller, KOKO [address] Z79.4 Office Visit 08/15/2016 3:15p [facility] [address] G47.33 Services Of Guest Services Assistant E66.01 Office Visit 08/13/2016 10:40a [facility] [place] [address] Z79.4 Z79.84 Office Visit 07/15/2016 2:00p Pul[facility] [address] G47.9 Services [facility] E66.01 Office Visit 07/11/2016 10:40a [facility] Internal Nikko Thrasher, 83499 H66.92 Medicine - [address] M.DAlea Office Visit 07/08/2016 12:40p [facility] [place] [address] H66.92 Medicine - [address] Office Visit 05/13/2016 9:40a [facility] [place] [address] E11.65 Medicine - [address] Z79.4 Office Visit 04/05/2016 3:20p [facility] [place] [address] M79.675 Office Visit 03/12/2016 1:40p [facility] Internal Medicine - Alex Mongolian, WIRE SPINNER [address] Office Visit 02/05/2016 10:40a [facility] Internal Medicine - Alex Mongolian, WIRE SPINNER [address] R07.89 Z79.4 Office Visit 12/06/2015 11:00a [facility] [facility] Internal Medicine - Alex Mongolian, [employer] [address] Z79.4 Office Visit 11/22/2015 10:40a [facility] Internal Medicine - Alex Mongolian, [employer] [address] M79.644 Z79.4 Office Visit 10/30/2015 2:00p [facility] Internal Medicine - Alex Mongolian, [employer] [address] I10 E78.2 K21.9 J30.2 E66.9 Office Visit 03/16/2014 10:40a Neurosurgery Services Stanislav Meyer, [address] 756.11 Of [facility] Kyara 738.4 Plan of Care Future Appointment(s):09/16/2017 1:30 pm - Jennifer De Leon DNP, RN, ADJUNCT PROFESSOR OF [place] HISTORY- at [facility]08/04/2017 11:20 am - Dom Lew M.D.,FACP at [facility] Internal Medicine - [address]07/15/2017 - Jennifer De Leon DNP, RN, ADJUNCT PROFESSOR OF [place] HISTORY-BCG47.33 Obstructive sleep apnea (adult) (pediatric)New Orders:Sleep StudyFollow up:6 weeksRecommendations:To have in-lab CPAP titration to determine optimal pressure/mask for prone position of sleep. Bring you pillow and current mask to the study. Risks of untreated sleep apnea including cardiovascular events: rhythm irregularities, heart attack, stroke; gastro esophageal reflux disease (GERD); diabetes; anxiety, depression; high blood pressure; accidents (machinery and automobile) Recommendation for PAP other treatment modalities NON-PAP including oral appliance/mandibular advancement device, positional strategies , and surgery discussed. If you have any sleepiness while driving you MUST avoid operating a vehicle or machinery. If you have any further questions, please call the [facility] at .N37.41 Body mass index (BMI) 40.0-44.9, adultRecommendations:Continue to work with Megan Kim [employer]
[2017-07-29 12:41] VITALS: BP 136/78
--- NOTE | 2017-07-29 13:26 | UC ---
UC General HPI - HPI Summary HPI Summary: Pt presents with b/l lower rib pain that started 5 days ago and has been persistent since. She has not taken anything for this pain. Pain is reproducible on touch. Her pain is somewhat improving. Denies recent illness. Denies fever, chills, cough, sinus symptoms, chest pain, SOB, abdominal pain, n/ v/d/c, or body aches. - History of Current Complaint Chief Complaint: UCGeneralIllness Stated Complaint: RIB PAIN Time Seen by Provider: 07/29/17 13:24 Hx Obtained From: Patient Hx Last Menstrual Period: 07/16/17 Onset/Duration: Gradual Onset Onset Severity: Moderate Current Severity: Moderate Pain Intensity: 5 - Allergy/Home Medications Allergies/Adverse Reactions: Allergies Allergy/AdvReac Type Severity Reaction Status Date / Time No Known Allergies Allergy Verified 07/29/17 12:30 Home Medications: Home Medications Empagliflozin/Metformin HCl [Synjardy 12.5-1,000 mg Tablet] 1 tab PO DAILY 07/29 [History Confirmed 07/29/17] Icosapent Ethyl [Vascepa] 1 tab PO DAILY 07/29/17 [History Confirmed 07/29/17] Insulin Glargine,Hum.rec.anlog [Lantus Solostar 5x3 ML PENS] 54 units SQ DAILY 07/29/17 [History Confirmed 07/29/17] Norgestimate-Ethinyl Estradiol [Npx-Ll-Lsdzke Tablet] 1 tab PO DAILY 07/29/17 [ History Confirmed 07/29/17] PMH/Surg Hx/FS Hx/Imm Hx Previously Healthy: Yes Endocrine History: Diabetes Cardiovascular History: Hypertension - Surgical History Surgical History: None - Family History Known Family History: Positive: Cardiac Disease, Hypertension, Diabetes - Social History Lives: With Family Alcohol Use: None Substance Use Type: None Smoking Status (MU): Never Smoked Tobacco - Immunization History Most Recent Influenza Vaccination: 02/26/16 Review of Systems Constitutional: Negative Skin: Negative Eyes: Negative ENT: Negative Respiratory: Negative Cardiovascular: Negative Gastrointestinal: Negative Genitourinary: Negative Motor: Negative Neurovascular: Negative Musculoskeletal: Other: - Lower rib pain Neurological: Negative Psychological: Negative All Other Systems Reviewed And Are Negative: Yes Physical Exam Triage Information Reviewed: Yes Appearance: No Pain Distress, Obese Vital Signs: Initial Vital Signs Temp 96.0 F 07/29/17 12:36 Pulse 102 07/29/17 12:36 Resp 16 07/29/17 12:36 BP 136/78 07/29/17 12:36 Pulse Ox 98 07/29/17 12:36 Vital Signs Reviewed: Yes ENT: Positive: Hearing grossly normal, Pharynx normal, TMs normal, Uvula midline. Negative: Pharyngeal erythema, Nasal congestion, Nasal drainage, TM bulging, TM dull, TM red, Tonsillar swelling, Tonsillar exudate, Hoarse voice, Sinus tenderness Neck: Positive: Supple, Nontender, No Lymphadenopathy Respiratory: Positive: Lungs clear, Normal breath sounds, No respiratory distress, No accessory muscle use, Other: - B/L 11th-12th rib TTP. No ecchymosis , erythema, or edema. Cardiovascular: Positive: RRR, No Murmur, Pulses Normal Abdomen Description: Positive: Nontender, No Organomegaly, Soft. Negative: CVA Tenderness (R), CVA Tenderness (L), Distended, Guarding, Hepatomegaly, Pulsatile Mass, Splenomegaly Bowel Sounds: Positive: Present Neurological: Positive: Alert Psychological: Positive: Age Appropriate Behavior Skin: Negative: rashes Course/Dx - Course Course Of Treatment: XR: IMPRESSION: Negative PA chest and bilateral rib series. Advised to try ibuprofen for her pain and f/u with her PCP within 1 week if pain continues. - Differential Dx - Multi-Symptom Provider Diagnoses: Left and right rib pain Discharge - Discharge Plan Condition: Stable Disposition: HOME Patient Education Materials: Muscle Strain (DC) Referrals: Dom Lew MD [Primary Care Provider] - Additional Instructions: If you develop a fever, shortness of breath, chest pain, new or worsening symptoms - please call your PCP or go to the ED. Please schedule a follow up appointment with your PCP within 1 week for your b/ l rib pain.
--- NOTE | 2017-07-29 14:14 | RAD ---
Indication: Bilateral rib pain without proceeding injury. Comparison: No relevant prior exams available on the [facility] for comparison. Technique: Dual energy PA chest and 4 view bilateral rib series. Report: Clear lungs and pleural spaces. Negative for pneumothorax. The heart, pulmonary vasculature, and mediastinal contours are unremarkable. No rib fracture or focal osseous lesion evident. IMPRESSION: Negative PA chest and bilateral rib series.
== END 2017-07-29 14:38 | disposition home or self-care (01) ==
LOC: UCEAST 11:48
DX: R07.81 Pleurodynia (principal); E11.9 Type 2 diabetes mellitus without complications; Z79.4 Long term (current) use of insulin; Z79.84 Long term (current) use of oral hypoglycemic drugs; I10 Essential (primary) hypertension; E66.9 Obesity, unspecified
CPT/HCPCS: 71111; 81003; 99211; G0463

== ENCOUNTER 2017-09-01 11:00 | Emergency (ER) | payer MEDICARE, MEDICAID ==
--- OUTSIDE RECORDS SUMMARY | 2017-09-01 11:08 | XMS REPORT ---
:1990 External Reference #:[id number] Demographics Address [address] [place] [address] Mobile Phone [phone] Preferred Language Telugu Marital Status Not Or Pentecostalism Affiliation Unknown Race White Ethnic Group Not Or Author Organization [facility] Address [address] [place] [address] Phone [phone] Care Team Providers Name Role Phone Ion Lew M.D. Primary Care Physician Unavailable Payers Type Date Identification Numbers Payment Provider Subscriber Medicare Primary Policy Number: [id number] Medicare - NGS Inesfederico Herrera Todd PayID: [id number] [address] [place] [address] Medicaid Policy Number: [id number] Medicaid Sabas Brooks PayID: [id number] [address] [place] [address] Problems Date Description Provider Status Onset: Type 2 diabetes mellitus Active Onset: Essential hypertension Active Onset: Hypercholesterolemia Active Onset: 07/12/2015 Esotropia Tessie Watson O.D. Active Onset: 07/12/2015 Hypermetropia Tessie Watson O.D. 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 [email or web address] Work Status Part-Time Employment ETOH Use Rarely consumes alcohol Smoking Patient has never smoked Recreational Drug Use Denies Drug Use Daily Caffeine Occasional Caffeine coffee/tea/soda sometimes Allergies, Adverse Reactions, Alerts Date Description Reaction Status Severity Comments 06/12/2015 NKDA active Medications Medication Date Status Form Strength Qnty SIG Indications Ordering Provider Trulicity / Active Solution 1.5mg/0.5M Use One Unknown 0000 Pen-Inject L Injection Once Weekly Loratadine 00/00/ Active Tablets 10mg Take One Unknown 0000 Tablet By Mouth One Time Daily Enalapril / Active Tablets 5mg Take 1 Unknown Maleate 0000 Tablet By Mouth Twice A Day Fenofibrate / Active Tablets 54mg Take One Unknown 0000 Tablet By Mouth One Time Daily Omeprazole / Active Capsules 20mg Take [address] Capsule By Mouth Daily Lantus / Active Solution 45Unit/ML Unknown 0000 Lovastatin / Active Tablets 20mg Unknown 0000 Synjardy XR / Active Tablets ER 12.5-1000m Unknown 0000 24HR g Wje-Ir-Lkuqdo / Active Tablets 0.18/0.215 Unknown 0000 /0.25 mg-25 mcg Vascepa / Active Capsules 1gm Unknown 0000 Losartan / Hx Tablets 50mg Unknown Potassium - 2017 Januvia /00/ Hx Tablets 100mg Unknown - 2017 Glyburide / Hx Tablets 5mg Unknown - 2017 Lipitor / Hx Tablets 10mg Unknown - 2015 Metformin HCL /00/ Hx Tablets 850mg Unknown 0000 - 2015 Iron 100 Plus / Hx Tablets 100-250-0. Unknown 0000 - 025-1mg 2015 Metformin HCL 00/ Hx Tablets ER 500mg Take 2 Unknown ER 0000 - 24HR Tablets By 08/07/ Mouth Daily 2017 Results Description No Information Procedures Date CPT Code Description Status 06/26/2016 50096 Est Patient Comprehensive Exam Completed 07/12/2015 28999 Est Patient Comprehensive Exam Completed 06/20/2014 81848 Determination Of Refractive State Completed 06/20/2014 89960 New Patient Comprehensive Exam Completed 05/07/2004 74252 Determination Of Refractive State Completed 05/07/2004 73219 Est Patient Comprehensive Exam Completed Plan of Care 08/08/2017 - Maryjane Aceves O.D.E11.9 Type 2 diabetes mellitus without complicationsComments:Smoking can increase the risk of developing or worsening any eye related disease, as well as affect your overall health. If you are a smoker, we strongly recommend that you quit.If you are not a smoker, we strongly recommend that you do not start. You have diabetes. I do not detect any changes in both of your retinas from diabetes at this time. Proper control of your diabetes is important for the health of your eyes. Changes in your eyes from diabetes can happen without symptoms, so it is important that you have your eyes examined.Follow up:1 year
--- NOTE | 2017-09-01 12:00 | UC ---
Head Injury HPI - HPI Summary HPI Summary: Patient complains of headache beginning on Friday patient states she was nauseated on Friday patient is here today because she has had ache down the right side of her head and states she feels a lump there but it is not palpable by provider - History Of Current Complaint Chief Complaint: UCHeadamike Stated Complaint: HEADACHE, LUMP ON HEAD Time Seen by Provider: 09/01/17 11:59 Hx Obtained From: Patient Hx Last Menstrual Period: 3 weeks ago ?: No Onset/Duration: Sudden Onset - 3 days ago Severity Currently: Mild Severity Initially: Mild Pain Intensity: 4 Pain Scale Used: Adult Non Verbal Character: Throbbing Aggravating Factor(s): Nothing Alleviating Factor(s): Nothing - Allergies/Home Medications Allergies/Adverse Reactions: Allergies Allergy/AdvReac Type Severity Reaction Status Date / Time No Known Allergies Allergy Verified 09/01/17 11:38 PMH/Surg Hx/FS Hx/Imm Hx Previously Healthy: No - developmental disabilities Endocrine History: Diabetes, Dyslipidemia Cardiovascular History: Hypertension GI/ History: Gastroesophageal Reflux - Surgical History Surgical History: None - Family History Known Family History: Positive: Cardiac Disease, Hypertension, Diabetes - Social History Occupation: Disabled Lives: Alone Alcohol Use: None Substance Use Type: None Smoking Status (MU): Never Smoked Tobacco - Immunization History Most Recent Influenza Vaccination: 02/26/16 Most Recent Tetanus Shot: UNK Review of Systems Constitutional: Fatigue Skin: Negative Eyes: Negative ENT: Nasal Discharge Respiratory: Negative Cardiovascular: Negative Gastrointestinal: Nausea Genitourinary: Negative Motor: Negative Neurovascular: Negative Musculoskeletal: Negative Neurological: Headache Psychological: Negative Is Patient Immunocompromised?: No All Other Systems Reviewed And Are Negative: Yes Physical Exam Triage Information Reviewed: Yes Appearance: Ill-Appearing - mild, Pain Distress - mild, Obese Vital Signs: Initial Vital Signs Temp 96.9 F 09/01/17 11:31 Pulse 96 09/01/17 11:31 Resp 20 09/01/17 11:31 BP 150/77 09/01/17 11:31 Pulse Ox 98 09/01/17 11:31 Vital Signs Reviewed: Yes Eye Exam: Normal Eyes: Positive: Conjunctiva Clear ENT Exam: Normal ENT: Positive: Normal ENT inspection, Hearing grossly normal, Pharynx normal, Nasal congestion, Nasal drainage, TMs normal, Sinus tenderness, Uvula midline. Negative: Tonsillar swelling, Trismus, Muffled voice, Hoarse voice, Dental tenderness Dental Exam: Normal Neck exam: Normal Neck: Positive: Supple, Nontender Respiratory Exam: Normal Respiratory: Positive: Chest non-tender, Lungs clear, Normal breath sounds, No respiratory distress, No accessory muscle use Cardiovascular Exam: Normal Cardiovascular: Positive: RRR, No Murmur, Pulses Normal, Brisk Capillary Refill Musculoskeletal Exam: Normal Musculoskeletal: Positive: Strength Intact, ROM Intact, No Edema Neurological Exam: Normal Neurological: Positive: Alert, Muscle Tone Normal Psychological Exam: Normal Skin Exam: Normal Diagnostics - Laboratory Diagnostic Studies Completed/Ordered: Rapid strep negative influenza A and B- urine negative fingerstick blood sugar 149 UA +3 glucose. - Radiology No standard instances Xray Interpretation: Positive (See Comments) Radiology Interpretation Completed By: Radiologist - no acute intracranial findings patient does have sinusitis Head Injury Course/Dx - Course Course Of Treatment: Course of treatment is to home and rest Tylenol ibuprofen for pain Augmentin, Flonase nasal spray follow up with Dr. Ion Hayes as necessary - Differential Dx/Diagnosis Provider Diagnoses: Acute headache acute sinusitis Discharge - Discharge Plan Condition: Stable Disposition: HOME Prescriptions: Amoxicillin/Clavulanate TAB* [Augmentin TAB 875*] 875 mg PO BID #20 tab Fluticasone NASAL SPRAY 50MCG* [Flonase NASAL SPRAY 50MCG*] 2 spray BOTH NARES DAILY #1 btl Patient Education Materials: Sinusitis (ED), Acute Headache (ED) Referrals: Dom Lew MD [Primary Care Provider] - 3 Days
[2017-09-01] MEDS ORDERED: Ibuprofen TAB* 600 MG PO ONE (12:08)
[2017-09-01] MEDS ORDERED: Cyclobenzaprine TAB* 10 MG PO ONE (13:30)
[2017-09-01 14:34] VITALS: BP 138/67
--- NOTE | 2017-09-01 15:02 | RAD ---
INDICATION: Headaches COMPARISON: None TECHNIQUE: Noncontrast axial source images were acquired from the skull base to the vertex. FINDINGS: Ventricles/sulci: The ventricles and cisterns are normal in size and configuration for age. Brain parenchyma: There is no focal parenchymal finding, evidence of intracranial mass, or intracranial mass effect. Intracranial hemorrhage:None. Extra-axial spaces: There are no abnormal extra axial fluid collections or evidence of extra-axial mass. Calvarium: There is no calvarial fracture or other calvarial abnormality. Scalp: There is no evidence of scalp or extracalvarial soft tissue abnormality. Paranasal sinuses/mastoid: There is bilateral maxillary sinus disease with mucous retention cysts or polyps The mastoid air cells are clear. Other: None. IMPRESSION: NO ACUTE INTRACRANIAL FINDINGS. SINUSITIS.
== END 2017-09-01 15:30 | disposition home or self-care (01) ==
LOC: UCEAST 11:00
DX: R51 Headache (principal); J01.90 Acute sinusitis, unspecified; R53.83 Other fatigue; R11.0 Nausea; Z32.02 Encounter for pregnancy test, result negative; E11.9 Type 2 diabetes mellitus without complications; Z79.4 Long term (current) use of insulin; E78.5 Hyperlipidemia, unspecified; I10 Essential (primary) hypertension; K21.9 Gastro-esophageal reflux disease without esophagitis
CPT/HCPCS: 70450; 81003; 84702; 87502; 87651; 99212; A9270-GY; G0463

== ENCOUNTER 2018-06-22 10:50 | Emergency (ER) | payer MEDICARE, MEDICAID ==
--- OUTSIDE RECORDS SUMMARY | 2018-06-22 10:58 | XMS REPORT | Continuity of Care Document ---
:1990 External Reference #:[id number] Demographics Address [address] [place] [address] Mobile Phone [phone] Email Address Preferred Language en Marital Status Not or Synagogue Affiliation Unknown Race White Ethnic Group Not or Author Name Lalitha Luong Care Team Providers Name Role Phone Dom Lew MD Primary Care Physician Unavailable Payers Type Date Identification Numbers Payment Provider Subscriber Policy Number: [id number] Medicare Larry Brooks PayID: [id number] [address] [place] [address] Policy Number: [id number] Medicaid Larry Brooks PayID: [id number] [address] [place] [address] Advance Directives Description No Information Available Problems Date Description Provider Status Onset: 10/30/2015 [...] Healthy Social History Type Date Description Comments Sex Unknown Marital Status Single Lives With Alone Occupation Currently Working [employer] Tobacco Use Start: Unknown Never Smoked Cigarettes Smoking Status Reviewed: 05/18/18 Never Smoked Cigarettes ETOH Use Rarely consumes alcohol Tobacco Use Start: Unknown Patient has never smoked Recreational Drug Use Denies Drug Use Exercise Type/Frequency Exercises regularly Exercise Type/Frequency Walks daily Currently Active Patient is currently not sexually active Allergies, Adverse Reactions, Alerts Date Description Reaction Status Severity Comments 09/08/2017 Ethinyl Estradiol Active rash- pt states Dr. Thompson told her rash is r/t art. scents 01/07/2018 Artificial Scents Active Bath & Body shower gel, Tide detergent 03/16/2014 NKDA Inactive Medications Medication Date Status Form Strength Qnty SIG Indications Ordering Provider Humalog Mix 06/18 Active Supn (75-25)10 30ml 20 units E11.65 Kline 75/25 Kwikpen 0Unit/ML with first MD Tamiko meal of the day, 10 units with last meal of the day Fenofibrate 05/26 Active Tablets 145mg 90tab 145mg once Kline s daily for MD Tamiko cholesterol Tri Femynor 05/18 Active Tablets 0.18/0.21 1 pill 5/0.25 daily, Nadir Lew, mg-35 mcg M.D.,FACP Ibuprofen 04/22 Active Tablets 600mg 60tab three times s a day as Nadir Lew, needed M.D.,FACP Tizanidine HCL 04/22 Active Capsules 4mg 30cap 1 tab tid as s needed Nadir Lew M.D.,FACP Mometasone 01/22 Active Solution 0.1% 30ml topical qd Dom prn to Nadir Lew, affected Kyara,FACP areas of scalp Methocarbamol 01/22 Active Tablets 500mg 30tab take one s tablet by Nadir Lew, mouth 3 M.D.,FACP times a day as needed Fluticasone 10/03 Active Suspension 50mcg/Act 16uni 2 sprays Dom ts each nostril Nadir Lew, qd. M.D.,FACP Ulticare Pen 09/16 Active Jennifer Sayre 6mm De Leon, 31G DNP, RN, [facility]- Synjardy XR 05/02 Active Tablets ER 12.5-1000 60tab Take 1 E11.65 Veronica Alarcon 24HR mg s Tablet By Nadir Lew, Mouth Twice M.D.,FACP Daily Onetouch 03/12 Active Misc 30G 200un test blood E11.65 Dom Delica Lancets its six times D. Louann, Fine 30G daily. date M.[facility] last seen: 04/21/18 Z68.41 Vascepa 01/27/2017 Active Capsules 1gm 180caps Take One Capsule Veronica Alarcon By Mouth Twice A D. Louann, Day M.D.,FAC Trulicity 12/16/2016 Active Solution 1.5mg/ 6ml inject E1 Dom Pen-Inject 0.5ML subcutaneously 1. D. Louann, weekly on 64 M.D.,FACP Onetouch 10/07/2016 Active Strips 100units Test Blood Sugar E1 Veronica Alarcon Ultra Blue 6 Times Daily 1. D. Louann, 64 M.D.,[facility] Pen Sayre 10/30/2015 Active Misc 31G X 100units humalog subq E1 Veronica Alarcon 6 mm three times a 1. D. Louann, day 64 M.D.,[facility] Enalapril 10/30/2015 Active Tablets 5mg 180tabs Take 1 Tablet By I1 Dom Maleate Mouth Twice A 0 D. Louann, Day M.D.,FACP E11.65 Loratadine Active Tablets 10mg 90tabs take 1 J30.2 Dom tablet by Nadir Lew, mouth M.D.,FACP every day Omeprazole Active Capsules DR 20mg 90caps Take One K21.9 Nikko Capsule By Anna Marie, Mouth M.D. Every Day Lovastatin Active Tablets 20mg 90tabs take 1 E78.2 Dom tablet by Nadir Lew, mouth M.D.,FACP nightly at bedtime Triamcinolone Active Cream 0.1% Apply To Unknown Acetonide Rash Once Daily Until Resolved. Fluconazole 06/05/2018 - Hx Tablets 150mg 1tabs take one Kline 06/18/2018 tablet by MD Tamiko mouth once for yeast infection Pioglitazone 05/18/2018 - Hx Tablets 15mg 90tabs take 15mg Kline HCL 06/18/2018 once daily MD Tamiko Penicillin V 04/26/2018 - Hx Tablets 500mg 28tabs four times Dom Potassium 05/03/2018 a day for Nadir Lew, 7 days M.D.,FACP Augmentin 03/05/2018 - Hx Tablets 875-12 20tabs by mouth Dom 03/15/2018 5mg twice a Nery. Louann, day M.D.,FACP Clobetasol 01/20/2018 - Hx Solution 0.05% 25ml topical to Dom Propionate 01/22/2018 affected Nadir Lew, area of M.DAlea,FACP scalp qd prn Tizanidine HCL 01/20/2018 - Hx Capsules 4mg 30caps 1 tab Dom 01/22/2018 every six D. Louann, hours as M.D.,FACP needed Afrezza 01/20/2018 - Hx Powder 8Unit 90units inhale 8u Dom 06/18/2018 pre-meal Nadir Lew, am, M.DAlea,FACP afternoon, inhale 12 u in pm Afrezza 12/10/2017 - Hx Powder 4Unit 90units inhale Dom 01/20/2018 pre-meal Nadir Lew, tid M.D.,FACP Tri-Sprintec 09/16/2017 - Hx 1 tab by Jennifer 0.18/0.125 12/10/2017 mouth De Leon, every day KWAN, RN, [employer] Tri-Sprintec 09/08/2017 - Hx Tablets 0.18/0 168tabs 1 by mouth Veronica Alarcon 05/18/2018 .215/0 every day Nadir Lew, .25 M.D.,FACP mg-35 mcg Lantus Solostar 09/08/2017 - Hx Solution 100Uni 15ml 45 units E11.65 Dom 06/18/2018 Pen-Inject t/ML twice a D. Canfield, day M.D.,FACP Augmentin 05/02/2017 - Hx Tablets 875-12 20tabs by mouth Dom 05/12/2017 5mg twice a D. Canfield, day M.D.,FACP Naproxen DR 03/11/2017 - Hx Tablets DR 375mg 60tabs 1 by mouth M25.53 [place] 03/17/2017 twice a 1 Pachikara, day M.D. Amoxicillin/Cla 03/11/2017 - Hx Tablets 875-12 20tabs 1 by mouth J06.9 Nikko vulanate 05/02/2017 5mg twice a Pachikara, Potassium day M.D. Lantus Solostar 01/27/2017 - Hx Solution 100Uni 15units Inject 60 E11.65 Dom 09/08/2017 Pen-Inject t/ML Units D. Canfield, Under The M.D.,FACP Skin Once In Evening Fish Oil 01/01/2017 - Hx Capsules 1000mg 60caps 1 by mouth E78.2 Veronica Alarcon 01/12/2017 twice a D. Canfield, day M.D.,FACP Fish Oil 12/24/2016 - Hx Capsules 1000mg 60caps 1 by mouth E78.2 Veronica Alarcon 12/24/2016 twice a D. Canfield, day M.D.,FACP Vascepa 12/24/2016 - Hx Capsules 1gm 60caps 1 by mouth E78.2 Dom 01/01/2017 twice a D. Canfield, day M.D.,FACP Lovaza 12/16/2016 - Hx Capsules 1gm 60caps take one E78.2 Dom 12/24/2016 capsule by DAlea Garciad, mouth M.D.,FACP twice a day Metformin HCL 12/16/2016 - Hx Tablets ER 500mg 360tabs 1 tab by E11.65 Dom ER 05/02/2017 24HR mouth bid Nery. Louann, M.D.,FACP Lantus 08/13/2016 - Hx Solution 100Uni 10ml inject 60 E11.65 Dom 01/27/2017 t/ML units D. Canfield, under the M.D.,FACP skin daily at at bedtime Onetouch 07/16/2016 - Hx Misc 100unit test blood [place] Ultrasoft 03/12/2017 s 3 times a Pachikara, Lancets day and as M.D. needed up to 6 times a day, dx e11.9 Neomycin-Polymy 07/12/2016 - Hx Suspension 3.5-10 10ml 4 drops [place] gregoria-HC 08/13/2016 000-1 both ear Pachikara, bid M.D. Levofloxacin 07/11/2016 - Hx Tablets 500mg 10tabs once daily H66.92 [place] 08/13/2016 Pachikara, M.D. Ciprodex 07/11/2016 - Hx Suspension 0.3-0. 7.500ml 4 drops H66.92 [place] 08/13/2016 1% twice a Pachikara, day 7 days M.D. stop for inreased iritation Cipro HC 07/11/2016 - Hx Suspension 0.2-1% 10ml 4 drops [place] 08/13/2016 twic daily Pachikara, x 7 says M.D. Amoxicillin 07/08/2016 - Hx Tablets 875mg 20tabs take one H66.92 Alex 07/11/2016 tablet by Paul PACKAGE DELIVERY DRIVER mouth twice a day x's 10 days Zofran 05/31/2016 - Hx Tablets 4mg 14tabs take 1 E11.65 Alex 06/06/2016 tablet by Paul [employer]AGE DELIVERY [employer]IVER mouth every 8 hours three times daily as needed for nausea Trulicity 05/23/2016 - Hx Solution 0.75mg 2ml 1 E11.65 Alex 12/16/2016 Pen-Inject /0.5ML injection KOKO Miller weekly Metformin HCL 05/13/2016 - Hx Tablets ER 500mg 180tabs take 2 E11.65 Dom ER 12/16/2016 24HR tablets by Nadir Lew, mouth M.D.,FACP daily Metformin HCL 02/05/2016 - Hx Tablets 1000mg 60tabs 1 by mouth E11.65 Alex 05/13/2016 twice a Paul PACKAGE DELIVERY DRIVER day Humalog Mix 10/30/2015 - Hx Supn (75-25 15ml 10 units E11.65 Alex 75/25 Kwikpen 05/23/2016 )100Un subq twice [place], PACKAGE DELIVERY DRIVER it/ML a day at breakfast and dinner; give 15 minutes prior to your meal Lantus Nationostar 10/30/2015 - Hx Solution 100Uni 15ml inject 20 E11.65 Alex 08/13/2016 Pen-Inject t/ML units [place], PACKAGE DELIVERY DRIVER under the skin daily at the same time at bedtime Metformin HCL 03/16/2014 - Hx Tablets ER 500mg 90tabs 1 by mouth E11.65 Alex ER 02/05/2016 24HR twice a [place], PACKAGE DELIVERY DRIVER day Enalapril - Hx Tablets 5mg 90tabs 1 by mouth I10 Unknown Maleate 10/30/2015 every day E11.65 Atorvastatin - Hx Tablets 20mg 90tabs take 1 Unknown Calcium 10/30/2015 tablet at bedtime Fenofibrate - Hx Tablets 54mg 30tabs take one E78. Dom 12/16/2016 tablet by 2 Nadir Lew, mouth one M.D.,FACP time daily Ibuprofen - Hx Tablets 200mg as needed Unknown 04/22/2018 Cui-Sh-Uchbjc - Hx Tablets 0.18/0.21 Take 1 Unknown 09/08/2017 5/0.25 Tablet By mg-25 mcg Mouth Daily Fenofibrate - Hx Tablets 54mg 90tabs Take 1 Dom 05/26/2018 Tablet By Nadir Lew, Mouth Every M.D.,FACP Day Medications Administered in Office Medication Date Status Form Strength Qnty SIG Indications Ordering Provider HPV,Unspecifie Administered Injection Unknown d 007 Polio,Unspecif Administered Injection Unknown ied 995 Immunizations CPT Code Status Date Vaccine Lot # 36914 Given 02/25/2018 Influenza Virus Vaccine, Quadrivalent, Split, [id number] Preservative Free 93900 Given 09/08/2017 Hepatitis B Vaccine Adult Dosage [id number] 96120 Given 12/16/2016 Pneumonia Vaccine [id number] 86211 Given 04/13/2007 Tdap - Tetanus/Diptheria/Acellular Pertussis 44402 Given 04/13/2007 Hepatitis A Vaccine Adult Dosage 03512 Given 06/20/2002 Hepatitis A Vaccine Pediatric/Adolescent Dosage 3 Dose Schedule 91582 Given 03/25/2002 Hepatitis A Vaccine Pediatric/Adolescent Dosage 2 Dose Schedule 73959 Given 11/19/1994 Hep B Pediatric/Adolescent 80532 Given 11/19/1994 Measles Mumps And Rubella MMR 89035 Given 04/12/1991 Hib PRP-Omp Conjugate 3 Dose Schedule Vital Signs Date Vital Result Comment 06/18/2018 1:16pm Height 60 inches 5'0" Weight 216.38 lb with shoes Heart Rate 88 /min BP Systolic Sitting 132 mmHg BP Diastolic Sitting 84 mmHg BMI (Body Mass Index) 42.3 kg/m2 05/18/2018 11:03am Height 60 inches 5'0" Weight 220.00 lb w/ shoes Heart Rate 106 /min BP Systolic 150 mmHg lue rg cuff BP Diastolic 88 mmHg lue rg cuff BMI (Body Mass Index) 43.0 kg/m2 04/22/2018 10:06am Height 60 inches 5'0" Weight 229.38 lb Heart Rate 111 /min BP Systolic 150 mmHg BP Diastolic 90 mmHg Body Temperature 100.8 F O2 % BldC Oximetry 95 % BMI (Body Mass Index) 44.8 kg/m2 03/25/2018 10:47am Height 60 inches 5'0" Weight 221.25 lb Heart Rate 96 /min BP Systolic Sitting 132 mmHg Lue large cuff BP Diastolic Sitting 82 mmHg Lue large cuff Respiratory Rate 26 /min O2 % BldC Oximetry 97 % On Ra BMI (Body Mass Index) 43.2 kg/m2 03/05/2018 9:41am Height 60 inches 5'0" Weight 225.38 lb Heart Rate 106 /min BP Systolic Sitting 118 mmHg large adult cuff left arm BP Diastolic Sitting 76 mmHg large adult cuff left arm Body Temperature 99.2 F O2 % BldC Oximetry 97 % at rest on room air BMI (Body Mass Index) 44.0 kg/m2 02/25/2018 1:44pm Height 60 inches 5'0" Weight 226.00 lb Heart Rate 108 /min BP Systolic Sitting 114 mmHg BP Diastolic Sitting 78 mmHg Body Temperature 98.7 F O2 % BldC Oximetry 97 % BMI (Body Mass Index) 44.1 kg/m2 02/03/2018 1:50pm Height 60 inches 5'0" Weight 222.00 lb Heart Rate 116 /min BP Systolic 110 mmHg BP Diastolic 60 mmHg Body Temperature 99.6 F O2 % BldC Oximetry 96 % BMI (Body Mass Index) 43.4 kg/m2 01/20/2018 11:34am Weight 220.12 lb Heart Rate 108 /min BP Systolic Sitting 136 mmHg BP Diastolic Sitting 86 mmHg Body Temperature 99.7 F O2 % BldC Oximetry 97 % 01/07/2018 8:46am Height 60 inches 5'0" Weight 218.50 lb Heart Rate 96 /min recheck pulse regular 100 BP Systolic Sitting 118 mmHg Lue large cuff BP Diastolic Sitting 74 mmHg Lue large cuff Respiratory Rate 24 /min O2 % BldC Oximetry 97 % On Ra BMI (Body Mass Index) 42.7 kg/m2 12/10/2017 11:21am Height 60 inches 5'0" Weight 215.00 lb Heart Rate 106 /min BP Systolic Sitting 124 mmHg BP Diastolic Sitting 82 mmHg Body Temperature 99.1 F O2 % BldC Oximetry 96 % BMI (Body Mass Index) 42.0 kg/m2 09/16/2017 1:40pm Height 60 inches 5'0" Weight 216.50 lb Heart Rate 94 /min BP Systolic Sitting 128 mmHg Rue large cuff BP Diastolic Sitting 74 mmHg Rue large cuff Respiratory Rate 20 /min O2 % BldC Oximetry 98 % BMI (Body Mass Index) 42.3 kg/m2 09/08/2017 9:29am Weight 224.00 lb Heart Rate 103 /min BP Systolic Sitting 138 mmHg BP Diastolic Sitting 70 mmHg Body Temperature 99.1 F O2 % BldC Oximetry 98 % 07/15/2017 2:14pm Height 60 inches 5'0" Weight 226.50 lb with shoes Heart Rate 84 /min BP Systolic Sitting 124 mmHg Rue lareg cuff BP Diastolic Sitting 74 mmHg Rue lareg cuff Respiratory Rate 16 /min O2 % BldC Oximetry 99 % On Ra BMI (Body Mass Index) 44.2 kg/m2 05/06/2017 2:23pm Height 60 inches 5'0" Weight 217.00 lb with shoes Heart Rate 108 /min BP Systolic Sitting 120 mmHg Lue large cuff BP Diastolic Sitting 80 mmHg Lue large cuff Respiratory Rate 24 /min O2 % BldC Oximetry 97 % On Ra BMI (Body Mass Index) 42.4 kg/m2 05/02/2017 10:32am Weight 222.00 lb Heart Rate 97 /min BP Systolic Sitting 124 mmHg BP Diastolic Sitting 82 mmHg Body Temperature 98.6 F O2 % BldC Oximetry 95 % 03/17/2017 1:16pm Height 60 inches 5'0" Weight 226.12 lb With shoes and wrist brace Heart Rate 106 /min BP Systolic Sitting 152 mmHg Lue reg cuff BP Diastolic Sitting 86 mmHg Lue reg cuff Respiratory Rate 24 /min O2 % BldC Oximetry 98 % On Ra BMI (Body Mass Index) 44.2 kg/m2 03/11/2017 3:42pm Height 60 inches 5'0" Weight 222.12 lb Heart Rate 96 /min BP Systolic 132 mmHg BP Diastolic 74 mmHg Body Temperature 99.6 F O2 % BldC Oximetry 98 % BMI (Body Mass Index) 43.4 kg/m2 01/27/2017 2:46pm Height 60 inches 5'0" Weight 220.00 lb Heart Rate 102 /min BP Systolic 122 mmHg BP Diastolic 66 mmHg Body Temperature 99.4 F O2 % BldC Oximetry 98 % BMI (Body Mass Index) 43.0 kg/m2 01/13/2017 1:16pm Height 60 inches 5'0" Weight 226.00 lb Heart Rate 80 /min BP Systolic Sitting 136 mmHg BP Diastolic Sitting 92 mmHg Respiratory Rate 14 /min O2 % BldC Oximetry 98 % BMI (Body Mass Index) 44.1 kg/m2 12/16/2016 1:18pm Weight 225.38 lb Heart Rate 119 /min BP Systolic 142 mmHg BP Diastolic 78 mmHg BP Systolic Recheck 108 mmHg BP Diastolic Recheck 72 mmHg Body Temperature 97.9 F O2 % BldC Oximetry 96 % 09/26/2016 3:27pm Height 60 inches 5'0" Heart Rate 111 /min BP Systolic Sitting 120 mmHg BP Diastolic Sitting 70 mmHg Respiratory Rate 22 /min Pain Level 0 O2 % BldC Oximetry 98 % 09/06/2016 9:36am Weight 227.38 lb Heart Rate 100 /min BP Systolic Sitting 140 mmHg BP Diastolic Sitting 70 mmHg Body Temperature 98.9 F O2 % BldC Oximetry 96 % 08/15/2016 3:09pm Height 60 inches 5'0" Weight 227.00 lb Heart Rate 113 /min BP Systolic Sitting 154 mmHg BP Diastolic Sitting 90 mmHg Respiratory Rate 18 /min O2 % BldC Oximetry 97 % BMI (Body Mass Index) 44.3 kg/m2 08/13/2016 9:53am Weight 227.38 lb Heart Rate 108 /min BP Systolic Sitting 146 mmHg BP Diastolic Sitting 80 mmHg Body Temperature 99.4 F O2 % BldC Oximetry 98 % 07/15/2016 1:39pm Height 60 inches 5'0" Weight 227.00 lb Heart Rate 95 /min BP Systolic Sitting 138 mmHg BP Diastolic Sitting 82 mmHg Respiratory Rate 16 /min O2 % BldC Oximetry 97 % BMI (Body Mass Index) 44.3 kg/m2 Neck Circumference in inches 18.25 07/11/2016 10:20am Weight 227.38 lb Heart Rate 97 /min BP Systolic Sitting 140 mmHg BP Diastolic Sitting 72 mmHg Body Temperature 99.4 F O2 % BldC Oximetry 97 % 07/08/2016 11:55am Height 60 inches 5'0" Weight 229.00 lb Heart Rate 102 /min BP Systolic Sitting 126 mmHg BP Diastolic Sitting 76 mmHg Body Temperature 99.3 F O2 % BldC Oximetry 96 % BMI (Body Mass Index) 44.7 kg/m2 05/31/2016 9:50am Height 60 inches 5'0" Weight 226.38 lb Heart Rate 118 /min BP Systolic Sitting 118 mmHg BP Diastolic Sitting 80 mmHg Body Temperature 99.1 F O2 % BldC Oximetry 96 % BMI (Body Mass Index) 44.2 kg/m2 05/13/2016 9:52am Weight 230.25 lb Heart Rate 98 /min BP Systolic Sitting 136 mmHg BP Diastolic Sitting 88 mmHg Body Temperature 98.7 F O2 % BldC Oximetry 99 % 04/05/2016 2:50pm Height 60 inches 5'0" Weight 233.00 lb Heart Rate 110 /min BP Systolic Sitting 134 mmHg BP Diastolic Sitting 70 mmHg Body Temperature 99.4 F O2 % BldC Oximetry 96 % BMI (Body Mass Index) 45.5 kg/m2 03/12/2016 1:30pm Height 60 inches 5'0" Weight 230.25 lb Heart Rate 108 /min BP Systolic Sitting 126 mmHg BP Diastolic Sitting 76 mmHg Body Temperature 99.4 F O2 % BldC Oximetry 97 % BMI (Body Mass Index) 45.0 kg/m2 02/05/2016 10:28am Height 60 inches 5'0" Weight 230.00 lb Heart Rate 96 /min BP Systolic Sitting 136 mmHg BP Diastolic Sitting 76 mmHg Respiratory Rate 16 /min Body Temperature 99.0 F BMI (Body Mass Index) 44.9 kg/m2 12/06/2015 10:48am Height 60 inches 5'0" Weight 233.38 lb Heart Rate 114 /min BP Systolic Sitting 118 mmHg BP Diastolic Sitting 70 mmHg O2 % BldC Oximetry 96 % BMI (Body Mass Index) 45.6 kg/m2 11/22/2015 10:36am Height 60 inches 5'0" Weight 236.00 lb Heart Rate 94 /min BP Systolic Sitting 112 mmHg BP Diastolic Sitting 76 mmHg Body Temperature 99.3 F O2 % BldC Oximetry 98 % BMI (Body Mass Index) 46.1 kg/m2 10/30/2015 1:32pm Height 60 inches 5'0" Weight 238.00 lb Heart Rate 102 /min BP Systolic Sitting 148 mmHg BP Diastolic Sitting 92 mmHg Body Temperature 98.7 F O2 % BldC Oximetry 96 % BMI (Body Mass Index) 46.5 kg/m2 03/16/2014 10:37am Height 60 inches 5'0" Weight 224.00 lb Heart Rate 78 /min BP Systolic Sitting 124 mmHg BP Diastolic Sitting 80 mmHg Pain Level 2 back BMI (Body Mass Index) 43.7 kg/m2 Results Test Date Facility Test Result H/L Range Note Comp Metabolic Panel 05/21/2018 [facility] Sodium 135 mmol/L N 135-145 [address] [place] [address] [phone] Chloride 104 mmol/L N 101-111 Co2 Carbon Dioxide 20 mmol/L Low 22-32 Glucose 196 mg/dL High 70-100 Blood Urea Nitrogen 11 mg/dL N 6-24 Creatinine 0.40 mg/dL Low 0.51-0.95 BUN/Creatinine Ratio 27.5 High 8-20 Calcium 9.0 mg/dL N 8.6-10.3 Total Protein 6.7 g/dL N 6.4-8.9 Albumin 3.8 g/dL N 3.2-5.2 Globulin 2.9 g/dL N 2-4 Albumin/Globulin Ratio 1.3 N 1-3 Total Bilirubin 0.20 mg/dL N 0.2-1.0 Alkaline Phosphatase 60 U/L N 34-104 Alt 37 U/L N 7-52 Egfr Non- 190.1 >60 Egfr 230.0 >60 1 Potassium TNP mmol/L 3.5-5.0 2 Anion Gap 11 mmol/L N 2-11 Ast TNP U/L 13-39 3 Lipid Profile 05/21/2018 [facility] Triglycerides 762 mg/dL 4 (Trig/Chol/HDL) [address] [place] [address] [phone] Cholesterol 190 mg/dL 5 HDL Cholesterol 29.6 mg/dL 6 LDL Cholesterol (SEE NOTE) mg/dL 7 Laboratory test 05/21/2018 [facility] C-Peptide 7.0 ng/mL Abnormal 1.1 - [address] [place] [address] [phone] Cortisol 6.72 g/dL 9 TSH (Thyroid Stim Horm) 1.76 mcIU/mL N 0.34-5.60 Thyroperoxidase AB 0.26 IU/mL N <9 LDL Cholesterol Direct 90 mg/dL 10 Laboratory test 04/22/2018 [facility] Hemoglobin A1c 9.4 High 5-7 finding Urine Culture And 04/22/2018 [facility] Urine Culture SEE RESULT 11, [address] [place] [address] [phone] Ua Routine 04/22/2018 [facility] Ua Specific 1.000 [place] Ua PH 5 Ua Color yellow Ua Appera clear Ua WBC + Ua Protein trace Ua Glucose large Ua Ketones small Ua Bilirubin neg Ua Urobilinogen neg Ua Nitrite neg Ua Occult Blood moderate CBC Auto Diff 02/27/2018 [facility] White Blood 8.1 10^3/uL N 3.5-10.[address] [place] [address] [phone] Red Blood Count 4.76 10^6/uL N 4.00-5.40 Hemoglobin 13.9 g/dL N 12.0-16.0 Hematocrit 41 % N 35-47 Mean Corpuscular Volume 86 fL N 80-97 Mean Corpuscular Hemoglobin 29 pg N 27-31 Mean Corpuscular HGB Conc 34 g/dL N 31-36 Red Cell Distribution Width 14 % N 10.5-15 Platelet Count 372 10^3/uL N 150-450 Mean Platelet Volume 7.8 um3 N 7.4-10.4 Abs Neutrophils 5.0 10^3/uL N 1.5-7.7 Abs Lymphocytes 2.5 10^3/uL N 1.0-4.8 Abs Monocytes 0.4 10^3/uL N 0-0.8 Abs Eosinophils 0 10^3/uL N 0-0.6 Abs Basophils 0 10^3/uL N 0-0.2 Abs Nucleated RBC 0 10^3/uL Granulocyte % 62.3 % N 38-83 Lymphocyte % 31.5 % N 25-47 Monocyte % 5.4 % N 0-7 Eosinophil % 0.3 % N 0-6 Basophil % 0.5 % N 0-2 Nucleated Red Blood Cells % 0.1 Laboratory test 02/27/2018 [facility] Lipase 50 U/L N 11.0- 82.[address] [place] [address] [phone] Laboratory test 02/27/2018 [facility] Calcium 4.65 N 4.65- 5.[address] Ionized mg/[place] [address] [phone] Comp Metabolic 02/27/2018 [facility] Sodium 135 N 135-[address] mmol/[place] [address] [phone] Potassium TNP mmol/L 3.5-5.0 13 Chloride 98 mmol/L Low 101-111 Co2 Carbon Dioxide 25 mmol/L N 22-32 Anion Gap 12 mmol/L High 2-11 Glucose 263 mg/dL High 70-100 Blood Urea Nitrogen 13 mg/dL N 6-24 Creatinine 0.69 mg/dL N 0.51-0.95 BUN/Creatinine Ratio 18.8 N 8-20 Calcium 9.4 mg/dL N 8.6-10.3 Total Protein 7.1 g/dL N 6.4-8.9 Albumin 3.8 g/dL N 3.2-5.2 Globulin 3.3 g/dL N 2-4 Albumin/Globulin Ratio 1.2 N 1-3 Total Bilirubin 0.20 mg/dL N 0.2-1.0 Alkaline Phosphatase 56 U/L N 34-104 Alt 38 U/L N 7-52 Ast TNP U/L 13-39 14 Egfr Non- 101.3 >60 Egfr 122.6 >60 15 Pthi 02/27/2018 [facility] PTH Intact 3.9 pmol/L N 1.3-9.[address] [place] [address] [phone] Calcium (PTH Intact) 9.5 mg/dL N 8.6-10.3 Laboratory test 02/25/2018 [facility] Test negative finding Urine Laboratory test 02/25/2018 [facility] Glucose 278 finding Fingerstick CBC Auto Diff 02/25/2018 [facility] White Blood Count 10.9 10^3/ uL High 3.5-[address] [place], [place] [id number] [phone] Red Blood Count 5.09 10^6/uL N 4.00-5.40 Hemoglobin 14.5 g/dL N 12.0-16.0 Hematocrit 44 % N 35-47 Mean Corpuscular Volume 86 fL N 80-97 Mean Corpuscular Hemoglobin 29 pg N 27-31 Mean Corpuscular HGB Conc 33 g/dL N 31-36 Red Cell Distribution Width 14 % N 10.5-15 Platelet Count 381 10^3/uL N 150-450 Mean Platelet Volume 8.5 um3 N 7.4-10.4 Abs Neutrophils 6.2 10^3/uL N 1.5-7.7 Abs Lymphocytes 3.9 10^3/uL N 1.0-4.8 Abs Monocytes 0.6 10^3/uL N 0-0.8 Abs Eosinophils 0 10^3/uL N 0-0.6 Abs Basophils 0.1 10^3/uL N 0-0.2 Abs Nucleated RBC 0 10^3/uL Granulocyte % 57.4 % N 38-83 Lymphocyte % 36.3 % N 25-47 Monocyte % 5.4 % N 0-7 Eosinophil % 0.3 % N 0-6 Basophil % 0.6 % N 0-2 Nucleated Red Blood Cells % 0.1 Comp Metabolic Panel 02/25/2018 [facility] Sodium 138 mmol/L N 135-[address] [place], [place] [id number] [phone] Potassium 4.5 mmol/L N 3.5-5.0 Chloride 96 mmol/L Low 101-111 Co2 Carbon Dioxide 29 mmol/L N 22-32 Anion Gap 13 mmol/L High 2-11 Glucose 220 mg/dL High 70-100 Blood Urea Nitrogen 10 mg/dL N 6-24 Creatinine 0.53 mg/dL N 0.51-0.95 BUN/Creatinine Ratio 18.9 N 8-20 Calcium 11.1 mg/dL High 8.6-10.3 Total Protein 7.7 g/dL N 6.4-8.9 Albumin 4.1 g/dL N 3.2-5.2 Globulin 3.6 g/dL N 2-4 Albumin/Globulin Ratio 1.1 N 1-3 Total Bilirubin 0.20 mg/dL N 0.2-1.0 Alkaline Phosphatase 61 U/L N 34-104 Alt 53 U/L High 7-52 Ast 44 U/L High 13-39 Egfr Non- 137.4 >60 Egfr 166.2 >60 16 Ua Routine 02/25/2018 [facility] Ua Specific [place] 1.005 Ua PH 6 Ua Color yellow Ua Appera clear Ua WBC neg Ua Protein trace Ua Glucose 250 Ua Ketones neg Ua Bilirubin neg Ua Urobilinogen normal Ua Nitrite neg Ua Occult Blood 50 Laboratory test 02/25/2018 [facility] Lipase 51 U/L N 11.0- 82.[address] [place] [address] [phone] Laboratory test 01/20/2018 [facility] Hemoglobin A1c 8.3 High 5-7 finding Lipid Profile 12/12/2017 [facility] Cholesterol 215 17 (Trig/Chol/HDL) [address] mg/dL [place], [place] [id number] [phone] HDL Cholesterol 32.4 mg/dL 18 Triglycerides 1428 mg/dL 19 LDL Cholesterol (SEE NOTE) mg/dL 20 Basic Metabolic Panel 12/12/2017 [facility] Sodium 137 mmol/L N 135-[address] [place] [address] [phone] Potassium 4.2 mmol/L N 3.5-5.0 Chloride 99 mmol/L Low 101-111 Co2 Carbon Dioxide 24 mmol/L N 22-32 Anion Gap 14 mmol/L High 2-11 Glucose 184 mg/dL High 70-100 Blood Urea Nitrogen 12 mg/dL N 6-24 Creatinine 0.70 mg/dL N 0.51-0.95 BUN/Creatinine Ratio 17.1 N 8-20 Calcium 9.9 mg/dL N 8.6-10.3 Egfr Non- 100.4 >60 Egfr 121.5 >60 21 Urine Microalbumin 12/12/2017 [facility] Ur Microalbumin 158.0 mg/L Random [address] (mg/L) [place] [address] [phone] Urine Creatinine 35.04 mg/dL Urine Microalbumin/Creatinine 450.9 ug/mg High <31 Laboratory test 12/12/2017 [facility] LDL Cholesterol 65 mg/dL [address] [place] [address] [phone] Laboratory test 12/10/2017 [facility] Hemoglobin A1c 8.8 High 5-7 finding Lipid Profile 09/10/2017 [facility] Triglycerides 461 mg/dL 23 (Trig/Chol/HDL) [address] [place] [address] [phone] Cholesterol 148 mg/dL 24 HDL Cholesterol 30.4 mg/dL 25 LDL Cholesterol (SEE NOTE) mg/dL 26 Laboratory test 09/10/2017 [facility] Hemoglobin A1c 8.5 % High 4.0-5.[address] (Glyco HGB) [place] [address] [phone] Hepatitis C Antibody Nonreactive Nonreactive Hepatitis B Mi 09/10/2017 [facility] Hepatitis B Not Immune Immune AB Titer [address] [place] [address] [phone] Hep B Surf AB Level 5.33 mIU/mL >12 Basic Metabolic Panel 09/10/2017 [facility] Sodium 139 mmol/L N 139-[address] [place] [address] [phone] Potassium 4.4 mmol/L N 3.5-5.0 Chloride 103 mmol/L N 101-111 Co2 Carbon Dioxide 23 mmol/L N 22-32 Anion Gap 13 mmol/L High 2-11 Glucose 211 mg/dL High 70-100 Blood Urea Nitrogen 11 mg/dL N 6-24 Creatinine 0.44 mg/dL Low 0.51-0.95 BUN/Creatinine Ratio 25.0 High 8-20 Calcium 9.7 mg/dL N 8.6-10.3 Egfr Non- 171.5 >60 Egfr 220.6 >60 28 Laboratory 09/10/2017 [facility] LDL 72 mg/dL [address] [place] [address] Direct [phone] Laboratory 09/08/2017 [facility] Hemoglobin 8.3 High 5-7 test finding A1c Laboratory 09/01/2017 [facility] Poc Negative Negative 30 test finding [address] , [place] [address] Urine [phone] Poc 09/01/2017 [facility] Poc Glucose, 3+ Abnormal Negative Urinalysis [address] [place] [address] [phone] Poc Bilirubin, Urine Negative Negative Poc Ketone, Urine Negative Negative Poc Specific [place], Urine 1.015 N 1.010-1.030 Poc Blood, Urine Trace-intact Abnormal Negative Poc pH, Urine 8.0 N 5-9 Poc Protein, Urine 1+ Abnormal Negative Poc Urobilinogen, Urine 0.2 Negative Poc Nitrite, Urine Negative Negative Poc Leukocytes, Urine Negative Negative Poc Color, Urine Yellow Poc Clarity, Urine Clear 31 Laboratory test 09/01/2017 [facility] Rapid Strep Negative Negative [address] [place] [address] [phone] Laboratory test 09/01/2017 [facility] Point of Care 149 mg/dL High 70-100 [address] [place] [address] [phone] Rapid Influenza 09/01/2017 [facility] Influenza A NEGATIVE Negative 34 A & B Molecular [address] [place] [address] [phone] Influenza B Molecular NEGATIVE Negative Poc Urinalysis 07/29/2017 [facility] Poc Glucose, 2+ Abnormal Negative [address] [place] [address] [phone] Poc Bilirubin, Urine Negative Negative Poc Ketone, Urine Negative Negative Poc Specific [place], Urine <=1.005 Low 1.010-1.030 Poc Blood, Urine Negative Negative Poc pH, Urine 5.5 N 5-9 Poc Protein, Urine Negative Negative Poc Urobilinogen, Urine 0.2 Negative Poc Nitrite, Urine Negative Negative Poc Leukocytes, Urine Negative Negative Poc Color, Urine Yellow Poc Clarity, Urine Clear 35 Laboratory test 05/02/2017 [facility] Hemoglobin A1c 10.2 High 5-7 finding Liver Function 01/24/2017 [facility] Total Protein 7.2 g/dL N 6.4-8.[address] [place], [place] [id number] [phone] Albumin 3.9 g/dL N 3.2-5.2 Globulin 3.3 g/dL N 2-4 Albumin/Globulin Ratio 1.2 N 1-3 Total Bilirubin 0.40 mg/dL N 0.2-1.0 Direct Bilirubin 0.10 mg/dL N 0.03-0.18 Indirect Bilirubin 0.3 mg/dL N 0.3-1.0 Alkaline Phosphatase 61 U/L N 34-104 Alt 83 U/L High 7-52 Ast 75 U/L High 13-39 Lipid Profile 01/24/2017 [facility] Triglycerides 534 mg/dL N 36 (Trig/Chol/HDL) [address] [place] [address] [phone] Cholesterol 223 mg/dL N 37 HDL Cholesterol 29.0 mg/dL N 38 LDL Cholesterol (SEE NOTE) mg/dL N 39 Basic Metabolic Panel 12/12/2016 [facility] Sodium 135 mmol/L N 133-[address] [place] [address] [phone] Potassium 4.3 mmol/L N 3.5-5.0 Chloride 98 mmol/L Low 101-111 Co2 Carbon Dioxide 26 mmol/L N 22-32 Anion Gap 11 mmol/L N 2-11 Glucose 255 mg/dL High 70-100 Blood Urea Nitrogen 11 mg/dL N 6-24 Creatinine 0.50 mg/dL Low 0.51-0.95 BUN/Creatinine Ratio 22.0 High 8-20 Calcium 9.6 mg/dL N 8.6-10.3 Egfr Non- 149.1 N >60 Egfr 191.8 N >60 40 Laboratory test 12/12/2016 [facility] Hemoglobin A1c 11.0 % High Less [address] (Glyco HGB) than 6.0 [place] [address] [phone] Urine 12/12/2016 [facility] Urine 97.[address] Microalbumin [address] Creatinine mg/[place] [address] [phone] Ur Microalbumin (mg/L) 142.8 mg/L N Urine Microalbumin/Creatinine 146.0 ug/mg High <31 Lipid Profile 12/12/2016 [facility] Triglycerides 487 mg/dL N 42 (Trig/Chol/HDL) [address] [place] [address] [phone] Cholesterol 192 mg/dL N 43 HDL Cholesterol 25.8 mg/dL N 44 LDL Cholesterol (SEE NOTE) mg/dL N 45 Comp Metabolic Panel 09/29/2016 [facility] Sodium 133 mmol/L N 133-[address] [place] [address] [phone] Potassium 3.9 mmol/L N 3.5-5.0 Chloride 97 mmol/L Low 101-111 Co2 Carbon Dioxide 26 mmol/L N 22-32 Anion Gap 10 mmol/L N 2-11 Glucose 279 mg/dL High 70-100 Blood Urea Nitrogen 11 mg/dL N 6-24 Creatinine 0.61 mg/dL N 0.51-0.95 BUN/Creatinine Ratio 18.0 N 8-20 Calcium 10.2 mg/dL N 8.6-10.3 Total Protein 8.1 g/dL N 6.4-8.9 Albumin 4.2 g/dL N 3.2-5.2 Globulin 3.9 g/dL N 2-4 Albumin/Globulin Ratio 1.1 N 1-3 Total Bilirubin 0.30 mg/dL N 0.2-1.0 Alkaline Phosphatase 66 U/L N 34-104 Alt 67 U/L High 7-52 Ast 43 U/L High 13-39 Egfr Non- 118.6 N >60 Egfr 152.5 N >60 46 Laboratory test finding 09/29/2016 [facility] Lipase 29 U/L N 11.0-82.[address] [place] [address] [phone] C Reactive Protein 7.95 mg/L High < 5.00 47 HCG < 0.60 mIU/mL N 48 Lactic Acid 2.1 mmol/L High 0.5-2.0 49 CBC Auto Diff 09/29/2016 [facility] White Blood 10.4 10^3/uL N 3.5-10.[address] [place] [address] [phone] Red Blood Count 5.14 10^6/uL N 4.0-5.4 Hemoglobin 15.2 g/dL N 12.0-16.0 Hematocrit 45 % N 35-47 Mean Corpuscular Volume 87 fL N 80-97 Mean Corpuscular Hemoglobin 30 pg N 27-31 Mean Corpuscular HGB Conc 34 g/dL N 31-36 Red Cell Distribution Width 13 % N 10.5-15 Platelet Count 368 10^3/uL N 150-450 Mean Platelet Volume 8 um3 N 7.4-10.4 Abs Neutrophils 5.8 10^3/uL N 1.5-7.7 Abs Lymphocytes 4.1 10^3/uL N 1.0-4.8 Abs Monocytes 0.4 10^3/uL N 0-0.8 Abs Eosinophils 0 10^3/uL N 0-0.6 Abs Basophils 0.1 10^3/uL N 0-0.2 Abs Nucleated RBC 0.01 10^3/uL N Granulocyte % 55.5 % N 38-83 Lymphocyte % 39.2 % N 25-47 Monocyte % 3.8 % N 1-9 Eosinophil % 0.4 % N 0-6 Basophil % 1.1 % N 0-2 Nucleated Red Blood Cells % 0.1 N Laboratory test 08/13/2016 [facility] Hemoglobin A1c 10.7 High 5-7 finding Laboratory test 05/13/2016 [facility] Hemoglobin A1c 11.5 High 5-7 finding Laboratory test 02/05/2016 [facility] Hemoglobin A1c 11.5 High 5-7 finding Laboratory test 11/23/2015 [facility] TSH (Thyroid Stim 1.75 N 0.34-5.[address] Horm) ?IU/mL 0 [place] [address] [phone] Lipid Profile 11/23/2015 [facility] Triglycerides 283 mg/dL N 50 (Trig/Chol/HDL) [address] [place] [address] [phone] Cholesterol 164 mg/dL N 51 HDL Cholesterol 26.6 mg/dL N 52 LDL Cholesterol 81 mg/dL N 53 Basic Metabolic Panel 11/23/2015 [facility] Sodium 135 mmol/L N 133-145 [address] [place] [address] [phone] Potassium 4.2 mmol/L N 3.5-5.0 Chloride 99 mmol/L Low 101-111 Co2 Carbon Dioxide 28 mmol/L N 22-32 Anion Gap 8 mmol/L N 2-11 Glucose 196 mg/dL High 70-100 Blood Urea Nitrogen 11 mg/dL N 6-24 Creatinine 0.49 mg/dL Low 0.51-0.95 BUN/Creatinine Ratio 22.4 High 8-20 Calcium 9.3 mg/dL N 8.6-10.3 Egfr Non- 153.9 N >60 Egfr 197.9 N >60 54 Laboratory test 11/23/2015 [facility] Cortisol 5.23 N [address] ?g/[place] [address] [phone] Laboratory test 10/30/2015 [facility] Hemoglobin A1c 11.4 High 5-7 finding Urine 10/30/2015 [facility] Ur Microalbumin 131.[address] Microalbumin [address] (mg/L) mg/[place] [address] [phone] Urine Creatinine 78.48 mg/dL N Urine Microalbumin/Creatinine 166.9 ug/mg High <31 1 Because ethnic data is not always readily [...] 15-29 5 Kidney failure <15 (or dialysis) 2 Specimen Hemolyzed. Result may not be valid. Unable to report test result due to hemolysis. 3 Unable to report test result due to hemolysis. 4 Desirable: <150 Borderline High: 150-199 High: 200-499 Very High: >500 5 Desirable: <200 Borderline High: 200-239 High: >239 6 Low: <40 Desirable: 40-60 High: >60 7 Unable to calculate LDL as triglyceride is > 400 8 Test Performed by: [facility] [address] [place] [address] 9 AM 8.7-22.4 PM <10 10 Desirable: <100 Near Optimal: 100-129 Borderline High: 130-159 High: 160-189 Very High: >189 11 [id number] 12 SEE RESULT BELOW Name: LARRY BROOKS Sharon : [address]: Veronica Lew MD Acct: [id number] Unit: [id number] AGE: 27 Location: [facility] Re04/22/18 SEX: F Status: REG REF SPEC: [id number] LIVIER: 04/22/18-[address]: Dom Lew MD REQ: [id number] RECD: 04/22/18 STATUS: COMP _ SOURCE: URINE SPDESC: ORDERED: Urine Culture COMMENTS: [id number] Urine Source: Random Procedure Result Reported Site Urine Culture Final 04/23/18- 1523 ML Organism 1 STREP GROUP B [place] Count 75-100,000 (Many) CFU/ML Susceptibility testing of penicillins and other B-lactams approved by FDA for treatment of Streptococcus pyogenes (Group A Strep) and Streptococcus agalactiae (Group B Strep) is not necessary for clinical purposes and need not be done routinely, since as with vancomycin, resistant strains have not been recognized. (CLSI X281-S37;p.66) Positive isolates will be saved for one week. Please call the Microbiology Laboratory if further susceptibility testing is needed. * ML - Main Lab . END OF REPORT DEPARTMENT OF PATHOLOGY, [address] [place] [address] Atul Bean M.D. Director [facility] # [id number] 13 Specimen Hemolyzed. Result may not be valid. Unable to report test result due to hemolysis. 14 Unable to report test result due to hemolysis. 15 Because ethnic data is not always readily [...] 15-29 5 Kidney failure <15 (or dialysis) 16 Because ethnic data is not always [...] 5 Kidney failure <15 (or dialysis) 17 Desirable: <200 Borderline High: 200-239 High: >239 18 Low: <40 Desirable: 40-60 High: >60 19 Desirable: <150 Borderline High: 150-199 High: 200-499 Very High: >500 20 Unable to calculate LDL as triglyceride is > 400 21 Because ethnic data is not always readily [...] 15-29 5 Kidney failure <15 (or dialysis) 22 Desirable: <100 Near Optimal: 100-129 Borderline High: 130-159 High: 160-189 Very High: >189 23 Desirable: <150 Borderline High: 150-199 High: 200-499 Very High: >500 24 Desirable: <200 Borderline High: 200-239 High: >239 25 Low: <40 Desirable: 40-60 High: >60 26 Unable to calculate LDL as triglyceride is > 400 27 Therapeutic target for the treatment of diabetes mellitus patients is <7% HBA1C, and in selective patients <6.0%. Please refer to [place] [employer] diabetic care guidelines for further information. 28 Because ethnic data is not always readily [...] 15-29 5 Kidney failure <15 (or dialysis) 29 Desirable: <100 Near Optimal: 100-129 Borderline High: 130-159 High: 160-189 Very High: >189 30 Sample Book Maker: [id number] If is still suspected, please repeat test after 48 to 72 hours. 31 Sample Book Maker: [id number] 32 Sample Book Maker: [id number] 33 Sample Book Maker: [id number] 34 Sample Book Maker: [id number] Sample Book Maker: [id number] 36 Desirable <150 Borderline high 150-199 High 200-499 Very High >500 37 Desirable <200 Borderline high 200-239 High >239 38 Low <40 Desirable: 40-60 High: >60 39 Unable to calculate LDL as triglyceride is > 400 40 Because ethnic data is not always readily [...] 15-29 5 Kidney failure <15 (or dialysis) 41 Therapeutic target for the treatment of diabetes Mellitus patients is <7% HBA1C, and in selective patients <6.0%.Please refer to [place] [employer] Diabetic care guidelines for further information. 42 Desirable <150 Borderline high 150-199 High 200-499 Very High >500 43 Desirable <200 Borderline high 200-239 High >239 44 Low <40 Desirable: 40-60 High: >60 45 Unable to calculate LDL as triglyceride is > 400 46 Because ethnic data is not always readily [...] 15-29 5 Kidney failure <15 (or dialysis) 47 Acute inflammation: >10.00 48 <5.0 Negative 5.0 - 25.0 Indeterminate (Repeat testing recommended after 72 hours) >25.0 Positive Perimenopausal women can display HCG levels of up to 20 mIU/mL 49 Critical Result LACT:2.1 Called to JAIME at: 18:12:11 by:[id number] Read back by:JAIME REID Severe Sepsis and Septic Shock Management Bundle Measure requires all lactic acids initially measuring >2.0 mmol/L be repeated. 50 Desirable <150 Borderline high 150-199 High 200-499 Very High >500 51 Desirable <200 Borderline high 200-239 High >239 52 Low <40 Desirable: 40-60 High: >60 53 Desirable: <100 mg/dL Near Optimal: 100-129 mg/dL Borderline High: 130-159 mg/dL High: 160-189 mg/dL Very High: >189 mg/dL 54 Because ethnic data is not always readily [...] 15-29 5 Kidney failure <15 (or dialysis) 55 AM 8.7-22.4 PM <10 Procedures Date Code Description Status 08/11/2017 42631 Polysomnography Sleep Staging 4+ Parameters W/Cpap Completed 08/08/2017 [id number] Diabetic Retinal Eye Exam Completed 03/18/2017 11839 Sleep Study Unattended,HRT Rate,Oxygen Sat,Resp Completed Effort/Airflow 09/04/2016 [id number] Diabetic Foot Exam Completed 08/08/2016 88189 Polysomnography Sleep Staging 4+ Parameters Completed 06/26/2016 [id number] Diabetic Retinal Eye Exam Completed 11/30/2015 [id number] Diabetic Foot Exam Completed Encounters Type Date Location Provider Dx Diagnosis Office Visit 05/18/2018 [facility] Eliud Morrison MD 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, 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 E11.65 Type 2 diabetes mellitus with hyperglycemia E78.1 Pure hyperglyceridemia E66.8 Other obesity Z68.41 Body mass index (BMI) 40.0-44.9, adult Office Visit 04/22/2018 10:00a [facility] Internal Dom Lew, M54.5 Low back pain Medicine - [place],FACP Rd R39.15 Urgency of urination E11.29 Type 2 diabetes mellitus w oth diabetic kidney complication Office Visit 03/25/2018 Pulmonology And Jennifer G47.33 Obstructive sleep 11:00a [facility] [place], RN, apnea (adult) [facility] (pediatric) E66.01 Morbid (severe) obesity due to excess calories Z68.41 Body mass index (BMI) 40.0-44.9, adult Office Visit 03/05/2018 10:20a [facility] Internal Dom Schmitz A09 Infectious Medicine Aris Lew M.D.,FACP gastroenteritis and [address] colitis, unspecified J01.10 Acute frontal sinusitis, unspecified Office Visit 02/25/2018 2:00p [facility] Internal Claritza Marker, R10.13 Epigastric pain Medicine - [place] [address] R51 Headache Z23 Encounter for immunization E11.29 Type 2 diabetes mellitus w oth diabetic kidney complication M54.5 Low back pain E11.65 Type 2 diabetes mellitus with hyperglycemia Office Visit 02/03/2018 2:00p [facility] Internal Claritza Marker, M79.641 Pain in right Medicine - [place] [address] hand [address] R51 Headache Office Visit 01/26/2018 11:00a [facility] Dermatology Zbigniew Brothers, L23.9 Allergic contact MD dermatitis, unspecified cause L21.8 Other seborrheic dermatitis Office Visit 01/20/2018 11:20a [facility] Internal oDm Schmitz L21.0 Seborrhea Christina Lew M.D.,FACP capitis Lynn E11.65 Type 2 diabetes mellitus with hyperglycemia M54.2 Cervicalgia Office Visit 01/07/2018 [facility]monology [facility] Jennifer G47.33 Obstructive sleep 9:00a [facility] [place], NICK, apnea (adult) [facility] (pediatric) E66.01 Morbid (severe) obesity due to excess calories Z68.41 Body mass index (BMI) 40.0-44.9, adult Office Visit 12/26/2017 11:20a [facility] Dermatology Zbigniew Brothers, L23.9 Allergic contact dermatitis, unspecified cause Office Visit 12/10/2017 11:20a [facility] Internal Dom Schmitz N20.0 Calculus of Medicine - [place] Louann, kidney Rd Domi.Nadir,FACP E11.65 Type 2 diabetes mellitus with hyperglycemia I10 Essential (primary) hypertension E78.1 Pure hyperglyceridemia Office Visit 11/26/2017 [facility] Dermatology Zbigniew Burkzer, L23.9 Allergic contact 9:40a dermatitis, unspecified cause Office Visit 09/16/2017 Pulmonology And Jennifer G47.33 Obstructive sleep 1:30p [facility] De Leon RN, apnea (adult) [facility] (pediatric) Z68.41 Body mass index (BMI) 40.0-44.9, adult Office Visit 09/08/2017 10:00a [facility] Internal Dom Schmitz E11.65 Type 2 diabetes Christina Lew M.D.,FACP mellitus with [address] hyperglycemia E66.01 Morbid (severe) obesity due to excess calories I10 Essential (primary) hypertension T38.5x5A Adverse effect of oth estrogens and progestogens, init Z23 Encounter for immunization Office Visit 07/15/2017 Pulmonology And Jennifer G47.33 Obstructive sleep 2:15p [facility] [place] RN, apnea (adult) [facility] (pediatric) Z68.41 Body mass index (BMI) 40.0-44.9, adult Office Visit 05/06/2017 Pulmonology And Jennifer G47.33 Obstructive sleep 2:30p [facility] De Leon RN, apnea (adult) [facility] (pediatric) E66.01 Morbid (severe) obesity due to excess calories Z68.41 Body mass index (BMI) 40.0-44.9, adult Office Visit 05/02/2017 11:40a [facility] Internal Dom Schmitz E11.65 Type 2 diabetes Christina Lew M.D.,FACP mellitus with [address] hyperglycemia M25.531 Pain in right wrist J01.10 Acute frontal sinusitis, unspecified Office Visit 03/17/2017 1:30p Pulmonology And Lindy G47.33 Obstructive sleep [facility] MD Nuvia apnea (adult) [facility] (pediatric) E66.01 Morbid (severe) obesity due to excess calories Z68.41 Body mass index (BMI) 40.0-44.9, adult Office Visit 03/11/2017 4:00p [facility] Internal Nikko Thrasher, M25.531 Pain in Medicine - [place] M.Nadir right wrist Rd J06.9 Acute upper respiratory infection, unspecified Office Visit 01/27/2017 2:40p [facility] Internal Dom Schmitz E11.65 Type 2 diabetes Christina Lew M.D.,FACP mellitus with [address] hyperglycemia E78.1 Pure hyperglyceridemia Office Visit 01/13/2017 1:30p Pulmonology And Lindy G47.33 Obstructive sleep [facility] Nuvia apnea (adult) [facility] (pediatric) E66.01 Morbid (severe) obesity due to excess calories Z68.41 Body mass index (BMI) 40.0-44.9, adult Office Visit 12/16/2016 1:40p [facility] Internal Dom Schmitz E11.65 Type 2 diabetes Christina Lew M.D.,FACP mellitus with [address] hyperglycemia E66.01 Morbid (severe) obesity due to excess calories G47.33 Obstructive sleep apnea (adult) (pediatric) E78.1 Pure hyperglyceridemia Z23 Encounter for immunization Office Visit 09/26/2016 3:15p Pulmonology And Lindy G47.33 Obstructive sleep [facility] Nuvia apnea (adult) [facility] (pediatric) E66.01 Morbid (severe) obesity due to excess calories Office Visit 09/06/2016 10:00a [facility] Internal Alex Miller, E11.65 Type 2 diabetes Medicine - [employer] mellitus with [address] hyperglycemia Z79.4 intermediate (current) use of insulin Office Visit 08/15/2016 3:15p Pulmonology And Lindy G47.33 Obstructive sleep [facility] apnea (adult) [facility] (pediatric) E66.01 Morbid (severe) obesity due to excess calories Office Visit 08/13/2016 10:40a [facility] Internal Alex Miller E11.65 Type 2 diabetes Medicine - [employer] mellitus with [address] hyperglycemia Z79.4 intermediate (current) use of insulin Z79.84 intermediate (current) use of oral hypoglycemic drugs Office Visit 07/15/2016 2:00p Pulmonology And Lindy G47.9 Sleep disorder, [facility] unspecified [facility] E66.01 Morbid (severe) obesity due to excess calories Office Visit 07/11/2016 [facility] Internal Nikko H66.92 Otitis media, 10:40a Medicine - [place] Thrasher unspecified, left [address] ear Office Visit 07/08/2016 [facility] Internal Alex Miller NP H66.92 Otitis media, 12:40p Medicine - unspecified, left [address] ear Office Visit 05/13/2016 [facility] Internal Alex Miller NP E11.65 Type 2 diabetes 9:40a Medicine - mellitus with [address] hyperglycemia Z79.4 intermediate (current) use of insulin Office Visit 04/05/2016 3:20p [facility] Internal Alex Miller NP M79.672 Pain in left Medicine - [address] M79.675 Pain in left toe(s) Office Visit 03/12/2016 1:40p [facility] Internal Alex Miller J00 Acute nasopharyngitis Medicine - [employer] [common cold] [address] Office Visit 02/05/2016 10:40a [facility] Internal Alex Miller, E11.65 Type 2 diabetes Medicine - [employer] mellitus with [address] hyperglycemia R07.89 Other chest pain 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 Office Visit 12/06/2015 11:00a [facility] Internal Alex Miller E11.65 Type 2 diabetes Medicine - [employer] mellitus with [address] hyperglycemia Z79.4 intermediate (current) use of insulin Office Visit 11/22/2015 10:40a [facility] Internal Alex Miller, E11.65 Type 2 diabetes Medicine - [employer] mellitus with [address] hyperglycemia M79.644 Pain in right finger(s) Z79.4 intermediate (current) use of insulin Office Visit 10/30/2015 2:00p [facility] Internal Alex Miller, E11.65 Type 2 diabetes Medicine - [employer] mellitus with [address] hyperglycemia I10 Essential (primary) hypertension E78.2 Mixed hyperlipidemia K21.9 Gastro-esophageal reflux disease without esophagitis J30.2 Other seasonal allergic rhinitis E66.9 Obesity, unspecified Office Visit 03/16/2014 Neurosurgery Stanislav Wyatt 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 [facility] Congenital 738.4 Spondylolisthesis Acquired Plan of Treatment Future Appointment(s):07/23/2018 11:00 am - Eliud Morrison MD at [facility] and [facility]08/03/2018 10:00 am - Jennifer De Leon DNP, RN, [employer] at [facility]06/18/2018 - Eliud Morrison [id number] Type 2 diabetes mellitus with hyperglycemiaNew Medication:Humalog Mix 75/25 Kwikpen ( 75-25)100 Unit/ML - 20 units with first meal of the day, 10 units with last meal of the dayNew Labs:Glucose Random, Ordered: 06/18/18Instructions:1. Start Humalog 75/25 insulin pen - 20 units in the morning - 10 units in the evening 2. Continue Trulicity and Synjardy for diabetes. 3. Return in 1 month for a follow-up visit. 4. Resume pioglitazone 15mg daily. 5. Return in 4-6 weeks for a follow-up visit.
--- NOTE | 2018-06-22 11:06 | UC ---
Headache HPI - HPI Summary HPI Summary: 27-year-old woman comes clinic today with a chief complaint of headache. About 4 days. She reports sinus congestion. She feels like this is a sinus infection. The location of the headache is frontal and left temporal. Ibuprofen helps with the pain. No fevers. No ear pain. No weakness or numbness or difficulty with speech or vision. - History Of Current Complaint Stated Complaint: HEADACHE Time Seen by Provider: 06/22/18 10:57 Hx Last Menstrual Period: 3 weeks ago - Allergies/Home Medications Allergies/Adverse Reactions: Allergies Allergy/AdvReac Type Severity Reaction Status Date / Time No Known Allergies Allergy Verified 09/01/17 11:38 PMH/Surg Hx/FS Hx/Imm Hx Previously Healthy: Yes Endocrine History: Diabetes Cardiovascular History: Hypertension GI/ History: Gastroesophageal Reflux - Surgical History Surgical History: None - Family History Known Family History: Positive: Cardiac Disease, Hypertension, Diabetes - Social History Alcohol Use: None Substance Use Type: None Smoking Status (MU): Never Smoked Tobacco - Immunization History Most Recent Influenza Vaccination: 02/26/16 Most Recent Tetanus Shot: UNK Review of Systems All Other Systems Reviewed And Are Negative: Yes Constitutional: Positive: Negative Skin: Positive: Negative Eyes: Positive: Negative ENT: Positive: Sinus Congestion Respiratory: Positive: Negative Cardiovascular: Positive: Negative Gastrointestinal: Positive: Negative Motor: Positive: Negative Neurovascular: Positive: Negative Musculoskeletal: Positive: Negative Neurological: Positive: Headache Psychological: Positive: Negative Is Patient Immunocompromised?: No Physical Exam Triage Information Reviewed: Yes Appearance: Well-Appearing, No Pain Distress, Well-Nourished Vital Signs Reviewed: Yes Eye Exam: Normal Eyes: Positive: Conjunctiva Clear ENT: Positive: Pharynx normal, Nasal congestion, TMs normal Neck exam: Normal Neck: Positive: Supple Respiratory: Positive: Lungs clear, Normal breath sounds, No respiratory distress Cardiovascular: Positive: RRR Musculoskeletal Exam: Normal Musculoskeletal: Positive: Strength Intact, ROM Intact Neurological Exam: Normal Neurological: Positive: Alert, Muscle Tone Normal Psychological Exam: Normal Psychological: Positive: Age Appropriate Behavior Skin Exam: Normal Headache Course/Dx - Course Course Of Treatment: DISCUSSED VIRAL VERSES BACTERIAL INFECTION AND THE ROLE OF ANTIBIOTICS. THE PATIENT WISHES TO BE ON ANTIBIOTIC AT THIS TIME. Patient's headache is a 4 out of 10. She describes it as a sinus pressure. It improves with ibuprofen. Most probable cause of the headache is a sinus infection. Treated as such. I discussed with the patient that if the headache worsened or did not improve she needed to get reevaluated for alternative cause of the headache. - Differential Dx/Diagnosis Provider Diagnosis: Headache, Sinusitis Discharge - Sign-Out/Discharge Documenting (check all that apply): Patient Departure All imaging exams completed and their final reports reviewed: No Studies - Discharge Plan Condition: Stable Disposition: HOME Prescriptions: Amoxicillin/Clavulanate TAB* [Augmentin TAB 875*] 875 mg PO BID #20 tab Patient Education Materials: Sinusitis (ED), Acute Headache (ED) Referrals: Melvina Gay MD [Primary Care Provider] - Additional Instructions: FOLLOW UP WITH YOUR DOCTOR IF NOT COMPLETELY IMPROVED. GET RECHECKED FOR ANY WORSENING OF YOUR CONDITION OR QUESTIONS OR CONCERNS. - Billing Disposition and Condition Condition: STABLE Disposition: Home
[2018-06-22 11:09] VITALS: BP 150/77
== END 2018-06-22 11:21 | disposition home or self-care (01) ==
LOC: UCEAST 10:50
DX: J32.9 Chronic sinusitis, unspecified (principal); R51 Headache; E11.9 Type 2 diabetes mellitus without complications; I10 Essential (primary) hypertension
CPT/HCPCS: 99212; G0463

== ENCOUNTER 2020-09-12 04:47 | Inpatient (IN) ==
[2020-09-12] MEDS ORDERED: LORazepam 2 mg VIAL 1 ml IV PUSH ONE (05:33)
[2020-09-12] MEDS ORDERED: Lorazepam PYXIS KEY PRN (05:33)
[2020-09-12 06:13] LABS: ALT 81 U/L (7-52); Albumin 3.9 g/dL (3.2-5.2); Albumin/Globulin Ratio 1.1 (1-3); Alkaline Phosphatase 89 U/L (34-104); BUN/Creatinine Ratio 12.6 (8-20); Blood Urea Nitrogen 13 mg/dL (6-24); CO2 Carbon Dioxide 23 mmol/L (22-32); Calcium 9.8 mg/dL (8.6-10.3); Chloride 92 mmol/L (101-111); EGFR African American 76.1 (>60); EGFR Non-African American 62.9 (>60); Globulin 3.7 g/dL (2-4); Glucose 434 mg/dL (70-100); Sodium 128 mmol/L (135-145); Total Protein 7.6 g/dL (6.4-8.9)
[2020-09-12] MEDS ORDERED: Dextrose 50% Syringe 50 ml 25 GM/50 ML SYRINGE IV PUSH PRN ×2 (06:17→09:32)
[2020-09-12 06:20] LABS: HCG Pregnancy 0.62 mIU/mL
[2020-09-12 06:21] LABS: Troponin I 0.27 ng/mL (<0.03)
[2020-09-12] MEDS: NS 0.9% 1000 ml BAG 2,000 ML IV ONE (06:36)
[2020-09-12 06:43] LABS: AST 57 U/L (13-39); Anion Gap 13 mmol/L (2-11)
[2020-09-12] MEDS ORDERED: Iodixanol (CONTRAST) 320 MG/ML 100 ML SDV IV ONE (06:43)
[2020-09-12 06:52] LABS: Hematocrit 50 % (35-47); Hemoglobin 17.3 g/dL (12.0-16.0); Mean Corpuscular HGB Conc 35 g/dL (31-36); Mean Corpuscular Hemoglobin 31 pg (27-31); Mean Corpuscular Volume 90 fL (80-97); Mean Platelet Volume 8.2 fL (7.4-10.4); Platelet Count 335 10^3/uL (150-450); Red Blood Count 5.53 10^6 /uL (3.70-4.87); Red Cell Distribution Width 14 % (10-15); White Blood Count 8.3 10^3/uL (3.5-10.8)
[2020-09-12 06:53] LABS: ABS Basophils 0.1 10^3/ul (0-0.2); ABS Lymphocytes 2.1 10^3/ul (1.0-4.8); ABS Monocytes 0.3 10^3/ul (0-0.8); ABS Neutrophils 5.7 10^3/ul (1.5-7.7); Eosinophil % 0.1 %; Lymphocyte % 25.3 %; Nucleated Red Blood Cells % 0.3
[2020-09-12 07:05] LABS: Lipase 49 U/L (11.0-82.0)
[2020-09-12 08:54] LABS: C Reactive Protein 8.62 mg/L (<8.01)
[2020-09-12 10:03] LABS: Cholesterol 412 mg/dL
[2020-09-12 10:24] LABS: Triglycerides 3309 mg/dL
[2020-09-12 10:29] LABS: Urine Appearance Clear; Urine Bilirubin Negative (Negative); Urine Blood 1+ (Negative); Urine Color Yellow; Urine Glucose 3+(>=500 mg/dL) (Negative); Urine Ketones 1+ (Negative); Urine Nitrite Negative (Negative); Urine Protein 3+(>=500 mg/dL) (Negative); Urine Specific Gravity 1.045 (1.010-1.030); Urine Urobilinogen Negative (Negative)
[2020-09-12 10:32] LABS: Urine Bacteria Absent (Absent); Urine Red Blood Cell Trace(0-2/hpf) (Absent); Urine Squamous Epithelial Cell Present (Absent); Urine White Blood Cell Trace(0-5/hpf) (Absent)
[2020-09-12 10:39] LABS: Erythrocyte Sed Rate 47 mm/Hr (0-19); LDL Cholesterol Direct 61 mg/dL
[2020-09-12 10:42] LABS: Troponin I 5.22 ng/mL (<0.03)
[2020-09-12] MEDS ORDERED: Perflutren Lipid Microsphere 3 ML VIAL ONE (11:47)
[2020-09-12] MEDS ORDERED: Heparin DRIP 25,000 UNITS BAG 25,000 UNITS/500 ML BAG IV SCH (13:45)
[2020-09-12] MEDS ORDERED: Heparin 5000 UNITS/ML 1 mL VIAL IV SCH (14:00)
[2020-09-12] MEDS ORDERED: Insulin ISOPH/REG 70/30 SUBCUT SCH (18:00)
[2020-09-12] MEDS: EMPAGLIFLOZIN METFORMIN PO SCH (20:37)
[2020-09-12 21:03] LABS: Troponin I 5.78 ng/mL (<0.03)
[2020-09-12 21:28] LABS: TSH Ultra Thyroid Stim Horm 1.82 mcIU/mL (0.34-5.60)
[2020-09-13 05:45] LABS: ABS Basophils 0.1 10^3/ul (0-0.2); ABS Lymphocytes 4.4 10^3/ul (1.0-4.8); ABS Monocytes 0.6 10^3/ul (0-0.8); Eosinophil % 0.3 %; Hematocrit 43 % (35-47); Hemoglobin 14.8 g/dL (12.0-16.0); Mean Corpuscular HGB Conc 34 g/dL (31-36); Mean Corpuscular Hemoglobin 30 pg (27-31); Mean Corpuscular Volume 89 fL (80-97); Mean Platelet Volume 7.9 fL (7.4-10.4); Platelet Count 332 10^3/uL (150-450); Red Blood Count 4.85 10^6 /uL (3.70-4.87); Red Cell Distribution Width 13 % (10-15); White Blood Count 12.3 10^3/uL (3.5-10.8)
[2020-09-13 06:09] LABS: BUN/Creatinine Ratio 18.2 (8-20); Calcium 8.9 mg/dL (8.6-10.3); EGFR Non-African American 129.8 (>60); Potassium 3.7 mmol/L (3.5-5.0)
[2020-09-13] MEDS: EMPAGLIFLOZIN METFORMIN PO SCH (08:02)
[2020-09-13] MEDS ORDERED: Insulin ISOPH/REG 70/30 SUBCUT SCH (09:00)
[2020-09-13 09:01] LABS: Albumin 3.3 g/dL (3.2-5.2); Globulin 3.2 g/dL (2-4); Indirect Bilirubin 0.3 mg/dL (0.3-1.0); Total Bilirubin 0.4 mg/dL (0.2-1.0); Total Protein 6.5 g/dL (6.4-8.9)
[2020-09-13] MEDS ORDERED: NS 0.9% 1000 ml BAG 1,000 ML IV SCH ×2 (10:45→21:45)
[2020-09-13] MEDS ORDERED: Fenofibrate 145 mg TAB (NF) PO SCH (14:00)
[2020-09-13 14:26] LABS: Troponin I 6.44 ng/mL (<0.03)
[2020-09-13] MEDS ORDERED: Heparin DRIP 25,000 UNITS BAG 25,000 UNITS/500 ML BAG IV SCH (14:30)
[2020-09-13] MEDS ORDERED: Heparin 5000 UNITS/ML 1 mL VIAL IV SCH (15:00)
[2020-09-13 15:09] LABS: ABS Basophils 0.1 10^3/ul (0-0.2); ABS Lymphocytes 3.7 10^3/ul (1.0-4.8); ABS Monocytes 0.6 10^3/ul (0-0.8); ABS Neutrophils 6.3 10^3/ul (1.5-7.7); Eosinophil % 0.2 %; Hematocrit 46 % (35-47); Lymphocyte % 34.3 %; Mean Corpuscular HGB Conc 35 g/dL (31-36); Mean Corpuscular Hemoglobin 31 pg (27-31); Mean Corpuscular Volume 89 fL (80-97); Nucleated Red Blood Cells % 0.1; Platelet Count 340 10^3/uL (150-450); Red Cell Distribution Width 13 % (10-15); White Blood Count 10.7 10^3/uL (3.5-10.8)
[2020-09-13] MEDS: Nitro 2% OINT (Nitroglycerin) 1 INCH/PAK TOPICAL SCH (15:20)
[2020-09-13 15:24] LABS: Blood Urea Nitrogen 9 mg/dL (6-24); EGFR African American 171.3 (>60); EGFR Non-African American 141.6 (>60)
[2020-09-13 17:34] LABS: Cholesterol 288 mg/dL; HDL Cholesterol 28.5 mg/dL
[2020-09-13] MEDS: Nitro Patch/OINT Remove PATCH PATCH OFF SCH (17:34)
[2020-09-13 17:38] LABS: Troponin I 7.57 ng/mL (<0.03)
[2020-09-13] MEDS ORDERED: Iohexol 350 (CONTRAST) 200 ML MDV IV ONE (17:49)
[2020-09-13] MEDS ORDERED: Heparin 1,000 UNIT/ML 10 ml (10,000 UNITS) CATHLAB/DIALYSIS ONE (17:49)
[2020-09-13] MEDS ORDERED: nitroGLYCERIN DRIP 25,000 MCG/250 ML BTL ONE (17:49)
[2020-09-13] MEDS ORDERED: Midazolam 5 mg/5 ml VIAL 1 mg/ml 5 ml VIAL (5 mg) ONE ×3 (17:49→20:53)
[2020-09-13] MEDS ORDERED: fentaNYL 100 mcg/2 ml 50 MCG/ML VIAL ONE ×2 (17:49→19:52)
[2020-09-13] MEDS ORDERED: Lidocaine 1% VIAL 10 MG/ML VIAL ONE (17:49)
[2020-09-13] MEDS ORDERED: VERAPAMIL 2.5 MG/ML 2 ML VIAL ** 5 mg/2 ml ONE ×2 (17:49→20:52)
[2020-09-13] MEDS ORDERED: Heparin 2 UNITS/ML 1000 mls 1,000 ML IV ONE (17:49)
[2020-09-13 17:52] LABS: Triglycerides 1305 mg/dL
[2020-09-13] MEDS ORDERED: diPHENhydraMINE IV 50 MG/ML 1 ml VIAL (BENADRYL) ONE (17:54)
[2020-09-13 18:02] LABS: Troponin I 6.48 ng/mL (<0.03)
[2020-09-13 18:07] LABS: LDL Cholesterol Direct 76 mg/dL
[2020-09-13] MEDS ORDERED: Lorazepam PYXIS KEY PRN (23:21)
[2020-09-13] MEDS ORDERED: LORazepam 2 mg VIAL 1 ml IV PUSH ONE (23:22)
[2020-09-13] MEDS ORDERED: Metoprolol Tartrate 5 mg VIAL 5 ml VIAL (1 mg/ml) IV ONE (23:33)
[2020-09-13] MEDS ORDERED: Metoprolol Tartrate 5 mg VIAL 5 ml VIAL (1 mg/ml) ONE (23:44)
[2020-09-14 04:36] LABS: ABS Basophils 0.1 10^3/ul (0-0.2); ABS Eosinophils 0.1 10^3/ul (0-0.6); ABS Lymphocytes 3.4 10^3/ul (1.0-4.8); ABS Monocytes 0.8 10^3/ul (0-0.8); ABS Neutrophils 6.5 10^3/ul (1.5-7.7); Hematocrit 42 % (35-47); Hemoglobin 14.3 g/dL (12.0-16.0); Lymphocyte % 31.2 %; Mean Corpuscular HGB Conc 34 g/dL (31-36); Mean Corpuscular Hemoglobin 31 pg (27-31); Mean Corpuscular Volume 90 fL (80-97); Nucleated Red Blood Cells % 0.1; Platelet Count 298 10^3/uL (150-450); Red Blood Count 4.61 10^6 /uL (3.70-4.87); Red Cell Distribution Width 13 % (10-15); White Blood Count 10.8 10^3/uL (3.5-10.8)
[2020-09-14 04:52] LABS: Albumin 3.1 g/dL (3.2-5.2); BUN/Creatinine Ratio 18.5 (8-20); Calcium 8.7 mg/dL (8.6-10.3); EGFR African American 160.4 (>60); EGFR Non-African American 132.6 (>60); Potassium 3.9 mmol/L (3.5-5.0); Total Bilirubin 0.5 mg/dL (0.2-1.0); Total Protein 6.1 g/dL (6.4-8.9)
[2020-09-14] MEDS: Nitro 2% OINT (Nitroglycerin) 1 INCH/PAK TOPICAL SCH ×2 (06:00→14:23)
[2020-09-14] MEDS ORDERED: Midazolam 5 mg/5 ml VIAL 1 mg/ml 5 ml VIAL (5 mg) ONE ×2 (08:58→12:04)
[2020-09-14] MEDS ORDERED: VERAPAMIL 2.5 MG/ML 2 ML VIAL ** 5 mg/2 ml ONE (08:58)
[2020-09-14] MEDS ORDERED: fentaNYL 100 mcg/2 ml 50 MCG/ML VIAL ONE ×3 (08:58→14:48)
[2020-09-14] MEDS ORDERED: Heparin 1,000 UNIT/ML 10 ml (10,000 UNITS) CATHLAB/DIALYSIS ONE (08:58)
[2020-09-14] MEDS ORDERED: Heparin 2 UNITS/ML 1000 mls 3,000 ML IV ONE (08:59)
[2020-09-14] MEDS ORDERED: nitroGLYCERIN DRIP 0 MCG/0 ML BTL ONE (08:59)
[2020-09-14] MEDS ORDERED: Lidocaine 1% VIAL 10 MG/ML VIAL ONE (08:59)
[2020-09-14] MEDS ORDERED: Iohexol 350 (CONTRAST) 200 ML MDV IV ONE ×3 (08:59→11:52)
[2020-09-14] MEDS ORDERED: DULAGLUTIDE 1.5 MG/0.5 ML SUBCUT SCH (09:00)
[2020-09-14] MEDS ORDERED: Dulaglutide (NF) 0.75 MG/0.5 ML SYRINGE SUBCUT SCH (09:00)
[2020-09-14] MEDS ORDERED: NS 0.9% 1000 ml BAG 1,000 ML IV SCH ×2 (09:00→13:00)
[2020-09-14] MEDS ORDERED: HYDROmorphone 1 MG/1 ML SYRINGE ONE ×2 (10:32→12:24)
[2020-09-14] MEDS ORDERED: Bivalirudin 250 MG VIAL ONE ×2 (11:06→11:28)
[2020-09-14] MEDS ORDERED: Heparin 2 UNITS/ML 1000 mls 1,000 ML IV ONE (12:26)
[2020-09-14] MEDS ORDERED: Lactated Ringers 500 ml BAG 500 ML IV ONE (13:51)
[2020-09-14] MEDS: Lactated Ringers 1000 ml BAG 1,000 ML IV SCH ×2 (14:19→23:29)
[2020-09-14] MEDS: Nitro Patch/OINT Remove PATCH PATCH OFF SCH ×2 (14:22→18:28)
[2020-09-14] MEDS ORDERED: Midazolam 2 mg/2 ml VIAL 1 mg/ml 2 ml VIAL (2 mg) IV SLOW PU ONE (14:47)
[2020-09-14] MEDS ORDERED: fentaNYL 100 mcg/2 ml 50 MCG/ML VIAL IV SLOW PU ONE (14:47)
[2020-09-14] MEDS ORDERED: Ondansetron 4 mg VIAL 2 MG/ML 2 ml VIAL ONE (15:47)
[2020-09-14] MEDS ORDERED: Ondansetron 4 mg VIAL 2 MG/ML 2 ml VIAL IV PRN (15:51)
[2020-09-14] MEDS ORDERED: Prochlorperazine 5 mg/ml 2 ml VIAL (10 mg) IV PRN (19:11)
[2020-09-14] MEDS ORDERED: Prochlorperazine 5 mg/ml 2 ml VIAL (10 mg) ONE (19:15)
[2020-09-14 21:28] LABS: Urine Appearance Cloudy; Urine Bilirubin Negative (Negative); Urine Blood 3+ (Negative); Urine Color Yellow; Urine Glucose 3+(>=500 mg/dL) (Negative); Urine Ketones 1+ (Negative); Urine Nitrite Positive (Negative); Urine Protein 2+(100 mg/dL) (Negative); Urine Specific Gravity 1.027 (1.002-1.030); Urine Urobilinogen Negative (Negative)
[2020-09-14 21:43] LABS: Urine Bacteria Absent (Absent); Urine Red Blood Cell 3+(>10/hpf) (Absent); Urine Squamous Epithelial Cell Present (Absent); Urine White Blood Cell 1+(6-10/hpf) (Absent)
[2020-09-15 06:00] LABS: ABS Basophils 0.1 10^3/ul (0-0.2); ABS Eosinophils 0.1 10^3/ul (0-0.6); ABS Lymphocytes 3.2 10^3/ul (1.0-4.8); ABS Monocytes 0.7 10^3/ul (0-0.8); ABS Neutrophils 5.9 10^3/ul (1.5-7.7); Eosinophil % 0.6 %; Hematocrit 36 % (35-47); Hemoglobin 12.7 g/dL (12.0-16.0); Mean Corpuscular HGB Conc 35 g/dL (31-36); Mean Corpuscular Hemoglobin 31 pg (27-31); Mean Corpuscular Volume 90 fL (80-97); Platelet Count 288 10^3/uL (150-450); Red Blood Count 4.03 10^6 /uL (3.70-4.87); Red Cell Distribution Width 13 % (10-15); White Blood Count 9.9 10^3/uL (3.5-10.8)
[2020-09-15 06:13] LABS: ALT 44 U/L (7-52); AST 37 U/L (13-39); Albumin 3.1 g/dL (3.2-5.2); Albumin/Globulin Ratio 1.1 (1-3); Alkaline Phosphatase 68 U/L (34-104); Anion Gap 9 mmol/L (2-11); BUN/Creatinine Ratio 24.4 (8-20); Blood Urea Nitrogen 11 mg/dL (6-24); CO2 Carbon Dioxide 27 mmol/L (22-32); Calcium 8.8 mg/dL (8.6-10.3); Chloride 103 mmol/L (101-111); EGFR Non-African American 163.6 (>60); Globulin 2.9 g/dL (2-4); Glucose 226 mg/dL (70-100); Potassium 3.7 mmol/L (3.5-5.0); Sodium 139 mmol/L (135-145)
[2020-09-15 07:52] LABS: Magnesium 1.7 mg/dL (1.9-2.7); Phosphorus 3.8 mg/dL (2.5-5.0)
[2020-09-15] MEDS ORDERED: Zosyn per Pharmacy NOTE FOLLOW UP SCH (08:00)
[2020-09-15] MEDS ORDERED: Piperacillin/Tazobac ADVAN 3.375 GM in NS 0.9% 100 ml BAG 100 ML IV ONE (08:45)
[2020-09-15] MEDS ORDERED: Magnesium Sulf 4 GM/100 ML IV 4,000 MG/100 ML BAG IVPB ONE (10:34)
[2020-09-15] MEDS: ZOSYN 3.375 GM Q8H per EXTENDED INFUSION IV SCH ×2 (13:46→21:27)
[2020-09-15 16:59] LABS: Troponin I 5.92 ng/mL (<0.03)
[2020-09-15] MEDS ORDERED: Lactated Ringers 1000 ml BAG 1,000 ML IV SCH (17:00)
[2020-09-15] MEDS: Heparin 5000 UNITS/ML 1 mL VIAL SUBCUT SCH (21:23)
[2020-09-16 05:02] LABS: ABS Basophils 0.1 10^3/ul (0-0.2); ABS Eosinophils 0.1 10^3/ul (0-0.6); ABS Lymphocytes 2.4 10^3/ul (1.0-4.8); ABS Monocytes 0.5 10^3/ul (0-0.8); ABS Neutrophils 5.6 10^3/ul (1.5-7.7); Hematocrit 36 % (35-47); Hemoglobin 12.5 g/dL (12.0-16.0); Mean Corpuscular HGB Conc 35 g/dL (31-36); Mean Corpuscular Hemoglobin 31 pg (27-31); Mean Corpuscular Volume 89 fL (80-97); Mean Platelet Volume 7.9 fL (7.4-10.4); Platelet Count 305 10^3/uL (150-450); Red Blood Count 4.03 10^6 /uL (3.70-4.87); Red Cell Distribution Width 13 % (10-15); White Blood Count 8.7 10^3/uL (3.5-10.8)
[2020-09-16 05:21] LABS: BUN/Creatinine Ratio 27.1 (8-20); EGFR African American 183.7 (>60); EGFR Non-African American 151.9 (>60); Magnesium 1.6 mg/dL (1.9-2.7); Potassium 3.5 mmol/L (3.5-5.0)
[2020-09-16] MEDS ORDERED: Potassium Chlor 20 meq TAB.ER PO ONE (08:30)
[2020-09-16 08:40] LABS: HDL Cholesterol 20.2 mg/dL
[2020-09-16] MEDS: cefTRIAXone 1 gm/50 mL NS BAG 1 GM/50 ML BAG IVPB SCH (10:00)
[2020-09-16] MEDS: Heparin 5000 UNITS/ML 1 mL VIAL SUBCUT SCH ×2 (10:17→20:36)
[2020-09-16] MEDS: Insulin GLARGINE 100 un/ml 10 ml VIAL SUBCUT SCH (10:18)
[2020-09-16] MEDS ORDERED: ZOSYN 3.375 GM Q8H per EXTENDED INFUSION IV SCH (10:30)
[2020-09-17 07:51] LABS: ABS Eosinophils 0.1 10^3/ul (0-0.6); ABS Lymphocytes 1.7 10^3/ul (1.0-4.8); ABS Monocytes 0.4 10^3/ul (0-0.8); ABS Neutrophils 4.9 10^3/ul (1.5-7.7); Eosinophil % 1.9 %; Hematocrit 40 % (35-47); Hemoglobin 13.4 g/dL (12.0-16.0); Mean Corpuscular HGB Conc 34 g/dL (31-36); Mean Corpuscular Hemoglobin 30 pg (27-31); Mean Corpuscular Volume 91 fL (80-97); Mean Platelet Volume 8.1 fL (7.4-10.4); Platelet Count 347 10^3/uL (150-450); Red Blood Count 4.41 10^6 /uL (3.70-4.87); Red Cell Distribution Width 13 % (10-15); White Blood Count 7.2 10^3/uL (3.5-10.8)
[2020-09-17] MEDS: Heparin 5000 UNITS/ML 1 mL VIAL SUBCUT SCH (07:55)
[2020-09-17] MEDS: Insulin GLARGINE 100 un/ml 10 ml VIAL SUBCUT SCH (07:56)
[2020-09-17] MEDS: cefTRIAXone 1 gm/50 mL NS BAG 1 GM/50 ML BAG IVPB SCH (07:57)
[2020-09-17 08:09] LABS: Anion Gap 8 mmol/L (2-11); BUN/Creatinine Ratio 26.1 (8-20); Blood Urea Nitrogen 12 mg/dL (6-24); CO2 Carbon Dioxide 26 mmol/L (22-32); Calcium 9.2 mg/dL (8.6-10.3); Chloride 101 mmol/L (101-111); Cholesterol 134 mg/dL; EGFR Non-African American 159.5 (>60); Glucose 243 mg/dL (70-100); Magnesium 1.6 mg/dL (1.9-2.7); Potassium 4.2 mmol/L (3.5-5.0); Sodium 135 mmol/L (135-145); Triglycerides 427 mg/dL
[2020-09-17 08:23] LABS: LDL Cholesterol Direct 63 mg/dL
[2020-09-17] MEDS ORDERED: Magnesium Sulfate 2 gm BAG 2 GM/50 ML BAG IVPB ONE (11:14)
[2020-09-17 12:00] VITALS: BP 126/86
[2020-09-17 12:45] LABS: Troponin I 2.18 ng/mL (<0.03)
== END 2020-09-17 14:32 | disposition home or self-care (01) | DRG 247 ==
LOC: ED 04:47 → MED 10:34 → SUATTDRO 10:45 → MED 10:45 → MEDTELE 09-13 14:30 → ICU 09-13 21:44 → MEDTELE 09-15 20:18
PROVIDERS: ADMIT Hospitalist; ATTEND Internal Medicine

== ENCOUNTER 2023-07-28 17:30 | Observation (INO) ==
[2023-07-28] MEDS ORDERED: Vancomycin 1,000 MG in NS 0.9% 250 ml 250 ML IVPB ONE (19:32)
[2023-07-28 20:00] LABS: ABS Basophils 0.1 10^3/uL (0.0-0.1); ABS Lymphocytes 1.7 10^3/uL (1.0-4.8); ABS Monocytes 1.2 10^3/uL (0.0-0.9); ABS Neutrophils 15.5 10^3/uL (1.5-7.6); ABS Nucleated RBC 0.01 10^3/ul; Eosinophil % 0.1 %; Hematocrit 41.2 % (35-45); Hemoglobin 13.6 g/dL (11.5-14.3); Lymphocyte % 9.3 %; Mean Corpuscular Hemoglobin 28.3 pg (27-33); Mean Corpuscular Hgb Conc 33.1 g/dL (31-36); Mean Corpuscular Volume 85.3 fL (80-97); Platelet Count 399 10^3/uL (150-450); Red Blood Count 4.82 10^6/uL (3.63-4.92); Red Cell Distribution Width 14.7 % (12-17); White Blood Count 18.5 10^3/uL (3.8-11.8)
[2023-07-28] MEDS ORDERED: Zosyn per Pharmacy NOTE FOLLOW UP SCH (20:00)
[2023-07-28] MEDS ORDERED: Vancomycin per Pharmacy 1 EA NOTE FOLLOW UP SCH (20:00)
[2023-07-28 20:12] LABS: Activated Partial Thrombo Time 33.6 seconds (26.0-38.0); INR 1.05 (0.83-1.13)
[2023-07-28 20:19] LABS: Albumin 4.3 g/dL (3.2-5.2); Albumin/Globulin Ratio 1.2 (1-3); C Reactive Protein 228.96 mg/L (<8.01); Calcium 9.6 mg/dL (8.6-10.3); Creatinine, Serum 0.79 mg/dL (0.51-0.95); Globulin 3.7 g/dL (2-4); Potassium 3.8 mmol/L (3.5-5.0); Total Bilirubin 0.6 mg/dL (0.2-1.0); eGFR CKD-EPI 101.2 (>60)
[2023-07-28] MEDS: oxyCODONE/Acetamin 5/325 mg TAB PO ONE (21:23)
[2023-07-28] MEDS: NS 0.9% 1000 ml BAG 1,000 ML IV ONE (21:40)
[2023-07-28] MEDS: Piperacillin/Tazobac 3.375 BAG 3.375 GM/100 ML BAG IV ONE (21:41)
[2023-07-28 22:01] LABS: Venous Bicarbonate HCO3 23.8 mmol/L (24-28)
[2023-07-28 22:31] LABS: High Sensitivity Troponin 1 Hr 8 pg/mL (<15)
[2023-07-29] MEDS: Acetaminophen IV 1 GM/100ML 1,000 MG/100 ML BAG IV ONE (00:12)
[2023-07-29] MEDS: Ondansetron 4 mg VIAL 2 MG/ML 2 ml VIAL IV PRN (00:14)
[2023-07-29] MEDS: Ondansetron 4 mg VIAL 2 MG/ML 2 ml VIAL IV ONE (01:01)
[2023-07-29] MEDS: cefTRIAXone 1 gm/50 mL D5W 1 GM/50 ML BAG IV SCH ×2 (01:01→21:48)
[2023-07-29] MEDS: Vancomycin 1,500 MG in NS 0.9% 250 ml 250 ML IVPB ONE (02:09)
[2023-07-29] MEDS: Enoxaparin 40 MG/0.4 ML SYR SUBCUT SCH (02:09)
[2023-07-29] MEDS: Insulin ISOPH/REG 70/30 SUBCUT SCH ×2 (03:14→12:59)
[2023-07-29] MEDS: ZOSYN 3.375 GM x ONE DOSE over 30 miuntes IV (05:36)
[2023-07-29 06:00] LABS: ABS Basophils 0.1 10^3/uL (0.0-0.1); ABS Monocytes 1.1 10^3/uL (0.0-0.9); ABS Neutrophils 13.2 10^3/uL (1.5-7.6); Eosinophil % 0.2 %; Hematocrit 37.4 % (35-45); Hemoglobin 12.3 g/dL (11.5-14.3); Mean Corpuscular Hemoglobin 28.1 pg (27-33); Mean Corpuscular Hgb Conc 32.8 g/dL (31-36); Mean Corpuscular Volume 85.8 fL (80-97); Mean Platelet Volume 7.8 fL (7.5-11.2); Platelet Count 348 10^3/uL (150-450); Red Blood Count 4.36 10^6/uL (3.63-4.92); White Blood Count 16.4 10^3/uL (3.8-11.8)
[2023-07-29 06:16] LABS: Creatinine, Serum 0.67 mg/dL (0.51-0.95); Potassium 3.7 mmol/L (3.5-5.0); eGFR CKD-EPI 118.3 (>60)
[2023-07-29] MEDS: ZOSYN 3.375 GM Q8H per EXTENDED INFUSION IV SCH (08:14)
[2023-07-29 08:17] LABS: Urine Appearance Clear; Urine Bacteria Absent /HPF (Absent); Urine Bilirubin Negative (Negative); Urine Blood Negative (Negative); Urine Color Light-Yellow; Urine Glucose 4+ (>=1000 mg/dL) (Negative); Urine Ketones 1+ (Negative); Urine Nitrite Negative (Negative); Urine Protein Negative (Negative); Urine Red Blood Cell 2+(6-10/hpf) /HPF (0-Trace); Urine Squamous Epithelial Cell Present /HPF (Absent); Urine Urobilinogen Negative (Negative); Urine White Blood Cell 2+(11-20/hpf) /HPF (0-Trace); Urine pH 5.5 (5.0-8.0)
[2023-07-29] MEDS: Lactated Ringers 1000 ml BAG 1,000 ML IV ONE ×2 (08:30→12:59)
[2023-07-29] MEDS ORDERED: ZOSYN 3.375 GM Q8H per EXTENDED INFUSION IV SCH (09:00)
[2023-07-29] MEDS: CMCS: Fenofibrate 145 mg TAB (NF) PO SCH (09:43)
[2023-07-29] MEDS: NF:ICOSAPENT ETHYL 1 GM CAPSULE (NF) PO SCH (09:44)
[2023-07-29] MEDS ORDERED: Vancomycin 1,500 MG in NS 0.9% 250 ml 250 ML IVPB SCH (11:00)
[2023-07-29] MEDS ORDERED: Metoprolol Tartrate 5 mg VIAL 5 ml VIAL (1 mg/ml) IV ONE (18:10)
[2023-07-29] MEDS: Metoprolol Tartrate 5 mg VIAL 5 ml VIAL (1 mg/ml) IV ONE (18:35)
[2023-07-30 06:57] LABS: ABS Lymphocytes 1.2 10^3/uL (1.0-4.8); ABS Monocytes 0.8 10^3/uL (0.0-0.9); ABS Neutrophils 11.1 10^3/uL (1.5-7.6); Eosinophil % 0.3 %; Hematocrit 32.8 % (35-45); Hemoglobin 10.8 g/dL (11.5-14.3); Lymphocyte % 9.1 %; Mean Corpuscular Hemoglobin 28.1 pg (27-33); Mean Corpuscular Hgb Conc 32.8 g/dL (31-36); Mean Corpuscular Volume 85.6 fL (80-97); Mean Platelet Volume 7.7 fL (7.5-11.2); Platelet Count 343 10^3/uL (150-450); Red Blood Count 3.83 10^6/uL (3.63-4.92); Red Cell Distribution Width 14.7 % (12-17); White Blood Count 13.2 10^3/uL (3.8-11.8)
[2023-07-30 07:12] LABS: Creatinine, Serum 0.54 mg/dL (0.51-0.95); Potassium 3.9 mmol/L (3.5-5.0); eGFR CKD-EPI 124.6 (>60)
[2023-07-30 09:35] VITALS: BP 113/62
[2023-07-30] MEDS ORDERED: Vancomycin Trough Check NOTE FOLLOW UP ONE (10:30)
[2023-07-30] MEDS ORDERED: NF:ICOSAPENT ETHYL 1 GM CAPSULE (NF) PO SCH (21:00)
== END 2023-07-30 14:30 | disposition home or self-care (01) ==
LOC: ED 17:30 → EDHOLD 17:30 → MED 07-29 11:12
PROVIDERS: ADMIT Internal Medicine; ATTEND Hospitalist